=== PATIENT | male | born 1940 | race Caucasian/White ===

== ENCOUNTER → 2018-01-25 10:24 | Outpatient (CLI) | payer OTHER, SELFPAY ==
[2018-01-25 12:25] LABS: Absolute Lymphocyte Count 1.65 X10^3/ul (0.83-4.51); Absolute Neutrophil Count 3.6 X10^3/uL (2.0-7.7); Basophil# 0.03 X10^3/uL; Basophil% 0.5 % (0-1); Eosinophil# 0.16 X10^3/uL; Eosinophils% 2.5 % (0-5); Hematocrit 36.8 % (40-54); Hemoglobin 11.9 g/dl (13.0-16.5); Lymphocyte # 1.65 X10^3/ul (4.0); Lymphocyte % 25.3 % (19-41); Mean Corp Hgb Conc 32.3 g/gl (32-36); Mean Corpuscular Hgb 30.5 pg (27.0-32.0); Mean Corpuscular Volume 94.4 fL (80-94); Mean Platelet Vol. 10.7 fl (6.2-12.0); Monocyte% 15.3 % (0-10); Neutrophil # 3.62 X10^3/uL (2.7-7.7); Neutrophil % 55.3 % (47-70); Platelet Count 221 K/mm3 (150-450); RBC Distribution Width CV 13.7 % (11.6-14.6); RBC Distribution Width SD 45.1 fl (35.1-43.9); White Blood Count 6.5 K/mm3 (4.4-11.0)
[2018-01-25 12:46] LABS: POSITIVE COUNT NO; POSITIVE DIFFERENTIAL NO; POSITIVE MORPHOLOGY NO
[2018-01-25 12:47] LABS: Anion Gap 9 (5-15); BUN 35 mg/dL (7-18); BUN/Creat Ratio 19.8 RATIO (10-20); Calcium,Total 8.3 mg/dL (8.5-10.1); Chloride 111 mmol/L (98-107); Creatinine, Serum 1.77 mg/dL (0.70-1.30); EST Glomerular Filtration Rate 40 mL/min (>60); Est Glom Filt Rate - Afr Amer 48 mL/min (>60); Glucose 91 mg/dL (74-106); Potassium 5.5 mmol/L (3.5-5.1); Sodium Level 140 mmol/L (136-145); T4 Free Direct 1.06 ng/dL (0.76-1.46)
== END ==
PROVIDERS: Family Provider Family Medicine; PCP Family Medicine; Visit Provider Family Medicine
DX: I12.9 Hypertensive chronic kidney disease with stage 1 through stage 4 chronic kidney disease, or unspecified chronic kidney disease (principal); N18.9 Chronic kidney disease, unspecified; E03.9 Hypothyroidism, unspecified
CPT/HCPCS: 36415; 80048; 84439; 84443; 85025

== ENCOUNTER → 2018-02-01 11:36 | Outpatient (CLI) | payer OTHER, SELFPAY ==
[2018-02-01 15:26] LABS: Anion Gap 12 (5-15); BUN 28 mg/dL (7-18); BUN/Creat Ratio 19.6 RATIO (10-20); Calcium,Total 7.6 mg/dL (8.5-10.1); Chloride 112 mmol/L (98-107); Creatinine, Serum 1.43 mg/dL (0.70-1.30); EST Glomerular Filtration Rate 51 mL/min (>60); Est Glom Filt Rate - Afr Amer 62 mL/min (>60); Glucose 142 mg/dL (74-106); Potassium 4.4 mmol/L (3.5-5.1); Sodium Level 142 mmol/L (136-145)
== END ==
PROVIDERS: Family Provider Family Medicine; PCP Family Medicine; Visit Provider Family Medicine
DX: I12.9 Hypertensive chronic kidney disease with stage 1 through stage 4 chronic kidney disease, or unspecified chronic kidney disease (principal); N18.9 Chronic kidney disease, unspecified
CPT/HCPCS: 36415; 80048

== ENCOUNTER → 2018-03-08 09:00 | Outpatient (CLI) | payer OTHER, SELFPAY ==
--- NOTE | 2018-03-08 09:03 | RAD_ITS ---
STUDY: X-RAY CHEST REASON FOR EXAM: Male, 77 years old. Shortness of breath TECHNIQUE: Frontal and lateral views of the chest were obtained. COMPARISON: Prior comparison studies are not available for review at this time. FINDINGS: The lungs are hyperinflated. There are no focal airspace opacities. There is no demonstrated pleural abnormality. The cardiac silhouette is normal in size. The mediastinum and hilar regions are unremarkable. Normal visualized pulmonary arteries. There is atherosclerotic calcification of the thoracic aorta. There are diffuse degenerative changes of the visualized spine. The visualized ribs, clavicles, and shoulders are unremarkable. There is no demonstrated abnormality of the visualized upper abdomen. RAD/Chest PA and Lateral IMPRESSION: No acute cardiopulmonary abnormalities. Hyperinflation suggests COPD. Electronically Signed: Jayda Peace MD at 21:36 EDT Tel Direct: [phone], Service support ,
== END ==
PROVIDERS: Family Provider Family Medicine; PCP Family Medicine; Visit Provider Family Medicine
DX: R06.02 Shortness of breath (principal); I10 Essential (primary) hypertension
CPT/HCPCS: 71046

== ENCOUNTER → 2018-03-15 09:13 | Outpatient (CLI) | payer OTHER, SELFPAY ==
[2018-03-15 12:45] LABS: Anion Gap 13 (5-15); BUN 20 mg/dL (7-18); BUN/Creat Ratio 14.4 RATIO (10-20); Calcium,Total 7.4 mg/dL (8.5-10.1); Chloride 106 mmol/L (98-107); Creatinine, Serum 1.39 mg/dL (0.70-1.30); EST Glomerular Filtration Rate 53 mL/min (>60); Est Glom Filt Rate - Afr Amer 64 mL/min (>60); Glucose 149 mg/dL (74-106); Potassium 3.8 mmol/L (3.5-5.1); Sodium Level 144 mmol/L (136-145)
== END ==
PROVIDERS: Family Provider Family Medicine; PCP Family Medicine; Visit Provider Family Medicine
DX: I10 Essential (primary) hypertension (principal)
CPT/HCPCS: 36415; 80048

== ENCOUNTER 2018-04-11 09:06 | Emergency (ER) | payer MEDICARE, SELFPAY ==
[2018-04-11 09:06] VITALS: BP 147/77; PULSE 71; RESP 18; TEMP 36.6; O2SAT 97; BMI 30.8
--- NOTE | 2018-04-11 09:27 | RAD_ITS ---
STUDY: X-RAY - PELVIS AND RIGHT HIP REASON FOR EXAM: Male, 77 years old. Low back pain and right hip pain. TECHNIQUE: Radiological exam, hip, unilateral, with pelvis when performed; 2 or 3 views. COMPARISON: None. FINDINGS: There is a non-specific bowel gas pattern. There are atherosclerotic vascular calcifications of the pelvic arteries. A 1.6 cm calcification is seen overlying the right lower quadrant. This may represent an appendicolith. Normal bilateral iliac wings, sacroiliac joints and visualized sacrum. Normal bilateral superior and inferior pubic rami. Normal pubic symphysis. Normal bilateral ischial tuberosities. There is widening of the femoral neck suggestive of a femoral acetabular impingement. There is osteoarthritic spur formation of the acetabular rim. There is moderate articular joint space narrowing of the hip. RAD/Hip 2-3 Views with Pelvis IMPRESSION: Degenerative changes of the right hip joint. 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 Electronically Signed: Yann Hi MD at 10:15 EDT Tel [phone], Service support ,
--- NOTE | 2018-04-11 09:33 | ED.DCSUM_ITS ---
- ER Visit Summary Date of Service: 04/11/18 Chief Complaint: Back pain History of Present Illness: The patient is a 77 M presenting with back pain which has been worsening over the past 2 days. Patient states that he was advised by his primary care physician to discontinue ibuprofen which previously helped his back pain. He recently switched to Tylenol. He has pain in his low back which radiates to his right hip. He states last night he had pain when he tried to lay in bed. He did take an ibuprofen with improvement. He has improvement when he lays in his recliner but when he goes back in bed he has more pain. Denies injury. He denies bowel or bladder incontinence. Denies numbness or weakness. Denies fever chills. Physical Examination: Vitals are stable. Patient is afebrile. Alert no acute distress. HEENT exam is unremarkable. Neck is supple. Lungs are clear and equal bilaterally. Heart is regular rate and rhythm. Abdomen is soft nontender nondistended. Back: Right paraspinal lumbar muscle tenderness with no midline tenderness. Straight leg raise negative Extremities are unremarkable. Skin is warm and dry. No rash No focal neurologic deficit. Normal strength and sensation Remainder of exam is unremarkable. Emergency Department Course and Treatment: X-ray of the lumbar spine shows degenerative changes, osteopenia, no fracture. X-ray of the right hip shows Degenerative changes of the right hip joint. 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 Patient is resting comfortably on reevaluation. He declines pain medication. He will follow-up with his primary care physician. He is advised return to ED if worsening complaints. Disposition: Discharged home Impression: Acute on chronic back pain This note was generated with [employer] dictation software. It may contain incorrect words, spelling, and punctuation that were not noted in review of the chart prior to signing ED Disposition - Plan for ED Patient: Chief Complaint: Back Referrals: Hardik Finney MD [Primary Care Provider] -
--- NOTE | 2018-04-11 09:43 | RAD_ITS ---
STUDY: X-RAY - LUMBAR SPINE REASON FOR EXAM: Male, 77 years old. Low back and right hip pain TECHNIQUE: 3 view(s) of the lumbar spine were obtained. COMPARISON: None FINDINGS: Normal lumbar lordosis. There is no substantial scoliosis. There is a normal alignment of the vertebrae. There is diffuse demineralization with multi-level endplate spondylosis. There is multi-level degenerative disc disease with multi-level disc space narrowing. There is no demonstrated fracture. There is atherosclerotic calcification of the abdominal aorta without a demonstrated aneurysm. RAD/Lumbar Spine 2 or 3 Views IMPRESSION: Degenerative changes of the spine, as detailed above. Osteopenia, without acute fracture. Electronically Signed: Bertin Tomlin DO at 11:46 EDT Tel , Service support ,
--- NOTE | 2018-04-11 11:59 | ED.DEP ---
ED Disposition - Plan for ED Patient: Chief Complaint: Back Instructions: ED Neck Back Pain General Referrals: Hardik Finney MD [Primary Care Provider] -
[2018-04-11 12:01] VITALS: BP 142/74; PULSE 57; RESP 18; O2SAT 100
== END 2018-04-11 12:07 | disposition home or self-care (01) ==
PROVIDERS: Emergency Provider Emergency Medicine; Family Provider Family Medicine; PCP Family Medicine
DX: M54.9 Dorsalgia, unspecified (principal); G89.29 Other chronic pain; I10 Essential (primary) hypertension; M85.88 Other specified disorders of bone density and structure, other site; Z79.82 Long term (current) use of aspirin; Z79.899 Other long term (current) drug therapy
CPT/HCPCS: 72100; 73502; 99282

== ENCOUNTER 2018-04-26 09:05 | Day surgery (SDC) | payer MEDICARE, SELFPAY ==
[2018-04-26 09:31] VITALS: BP 159/80; PULSE 65; RESP 16; TEMP 36.2; O2SAT 98; BMI 30.5
[2018-04-26 11:05] VITALS: BP 138/69; BP 159/80; PULSE 59; RESP 14; TEMP 36.2; O2SAT 96
--- NOTE | 2018-04-26 11:09 | OP.PCM_ITS ---
Problem List (1) Dysphagia Status: Acute Qualifiers: Dysphagia type: esophageal phase Qualified Code(s): R13.10 - Dysphagia, unspecified (2) History of colon polyps Status: Acute Report of Operation Date of Procedure: 04/26/18 Pre-Operative Diagnosis: 1. Dysphasia. 2. History of colon polyps Post-Operative Diagnosis: 1. Normal EGD. 2. Sigmoid colon polyp. 3. Diverticulosis Surgery/Procedure Performed:: 1. EGD. 2. Colonoscopy Description of Procedure: The major risks and benefits associated with the procedure were explained to the patient in detail. The patient verbalized understanding and agreement with the same. The patient was then placed in the left lateral decubitus position. IV sedation was started by anesthesia. The endoscope was then advanced under direct visualization over the tongue, into the esophagus , stomach and duodenum. The esophagus appeared normal upon entry. There were no strictures. It was slowly withdrawn and the mucosa was carefully evaluated. Duodenal mucosal abnormalities were not visualized. Antegrade and retrograde views of the stomach were normal and did not reveal a hiatal hernia or ulceration. Gastric folds were normal. The scope was then withdrawn through the GE junction and careful examination did not demonstrate any mucosal abnormalities. No evidence of Cha's esophagus was apparent. Careful examination of the remainder of the esophagus was normal. There did appear to be non-contiguous contractions of the esophagus. The scope was then withdrawn from the patient. The patient was then turned for the colonoscopy portion of the procedure. A digital rectal exam was performed. This examination was within normal limits. A well-lubricated colonoscope was then inserted into the rectum and advanced under direct visualization to the level of the cecum. The bowel prep was good. The cecum was identified by both visual and anatomic landmarks. A photograph was taken of the end of the cecum. The scope was then fully withdrawn while examining the color, texture, anatomy and integrity of the mucosa from the cecum to the anal canal. The findings were consistent with normal colonic mucosa. The patient did have diverticulosis of the sigmoid colon. The patient did have a small polyp in the sigmoid colon which was identified while the scope was being withdrawn. While trying to orient the scope to biopsy this I was unable to locate the polyp I spent over 15 minutes advancing and withdrawing the colonoscope in the sigmoid colon and I was unable to find this polyp once more. Upon reaching the rectum the scope was retroflexed to examine the distal rectal vault. The scope was then straightened and was completely retrieved upon exiting the anal canal and the procedure was terminated. The patient was then transferred to the recovery room in stable condition. Recommendations for follow up: Recommend repeat colonoscopy in 6-12 months for removal of sigmoid colon polyp that was unable to be located for biopsy.
[2018-04-26 11:10] VITALS: BP 131/64; BP 159/80; PULSE 53; RESP 16; O2SAT 96
[2018-04-26 11:15] VITALS: BP 139/71; BP 159/80; PULSE 51; RESP 16; O2SAT 99
[2018-04-26 11:20] VITALS: BP 159/80; BP 167/72; PULSE 47; RESP 16; TEMP 36.5; O2SAT 100
[2018-04-26 11:40] VITALS: BP 159/80
== END 2018-04-26 11:56 | disposition home or self-care (01) ==
LOC: EN 09:05 → AC 09:06
PROVIDERS: Family Provider Family Medicine; PCP Family Medicine; Visit Provider Surgery
PROC: 0DJD8ZZ Inspection of Lower Intestinal Tract, Via Natural or Artificial Opening Endoscopic (ICD-10-PCS; CPT 45378; principal; 2018-04-26 10:10)
DX: R13.14 Dysphagia, pharyngoesophageal phase (principal); K63.5 Polyp of colon; K57.30 Diverticulosis of large intestine without perforation or abscess without bleeding; J43.9 Emphysema, unspecified; I10 Essential (primary) hypertension; E78.00 Pure hypercholesterolemia, unspecified; E07.9 Disorder of thyroid, unspecified; M19.90 Unspecified osteoarthritis, unspecified site; Z79.82 Long term (current) use of aspirin; Z79.899 Other long term (current) drug therapy; Z86.010 Personal history of colon polyps; Z87.891 Personal history of nicotine dependence; Z90.49 Acquired absence of other specified parts of digestive tract
CPT/HCPCS: 43235; G0105; J7120

== ENCOUNTER → 2018-08-11 08:22 | Outpatient (CLI) | payer MEDICARE, SELFPAY ==
[2018-08-11 11:54] LABS: Absolute Lymphocyte Count 1.49 X10^3/ul (0.83-4.51); Absolute Neutrophil Count 3.7 X10^3/uL (2.0-7.7); Basophil# 0.04 X10^3/uL; Basophil% 0.6 % (0-1); Eosinophil# 0.18 X10^3/uL; Eosinophils% 2.9 % (0-5); Hematocrit 36.9 % (40-54); Hemoglobin 11.8 g/dl (13.0-16.5); Lymphocyte # 1.49 X10^3/ul (4.0); Lymphocyte % 23.7 % (19-41); Mean Corpuscular Hgb 30.4 pg (27.0-32.0); Mean Corpuscular Volume 95.1 fL (80-94); Mean Platelet Vol. 10.7 fl (6.2-12.0); Monocyte# 0.82 X10^3/uL; Monocyte% 13.1 % (0-10); Neutrophil # 3.73 X10^3/uL (2.7-7.7); Neutrophil % 59.4 % (47-70); Platelet Count 189 K/mm3 (150-450); RBC Distribution Width CV 13.7 % (11.6-14.6); RBC Distribution Width SD 47.1 fl (35.1-43.9); Red Blood Count 3.88 M/mm3 (4.6-6.2); White Blood Count 6.3 K/mm3 (4.4-11.0)
[2018-08-11 11:56] LABS: POSITIVE COUNT NO; POSITIVE DIFFERENTIAL NO; POSITIVE MORPHOLOGY NO
[2018-08-11 12:16] LABS: AST(SGOT) 20 U/L (15-37); Alanine Aminotransfer ALT/SGPT 23 U/L (16-61); Albumin, Serum 3.3 g/dL (3.2-5.0); Alkaline Phosphatase 72 U/L (45-117); Anion Gap 8 (5-15); BUN 20 mg/dL (7-18); Calcium,Total 7.9 mg/dL (8.5-10.1); Chloride 110 mmol/L (98-107); Cholesterol 131 mg/dL (200); Creatinine, Serum 1.25 mg/dL (0.70-1.30); EST Glomerular Filtration Rate 60 mL/min (>60); Est Glom Filt Rate - Afr Amer 72 mL/min (>60); Globulin 3.4 g/dL (2.2-4.2); Glucose 121 mg/dL (74-106); High Density Lipoprotein 26 mg/dL; Potassium 4.2 mmol/L (3.5-5.1); Protein, Total 6.7 g/dL (6.4-8.2); Sodium Level 144 mmol/L (136-145); Thyroid Stim Hormone (TSH) 9.95 uIU/mL (0.358-3.74); Triglycerides 438 mg/dL
== END ==
PROVIDERS: Family Provider Family Medicine; PCP Family Medicine; Visit Provider Family Medicine
DX: N18.9 Chronic kidney disease, unspecified (principal); E03.9 Hypothyroidism, unspecified; E88.81 Metabolic syndrome and other insulin resistance
CPT/HCPCS: 36415; 80053; 80061; 84443; 85025

== ENCOUNTER → 2018-09-20 09:16 | Outpatient (CLI) | payer MEDICARE, SELFPAY ==
[2018-09-20 13:02] LABS: T4 Free Direct 1.01 ng/dL (0.76-1.46); Thyroid Stim Hormone (TSH) 5.81 uIU/mL (0.358-3.74)
== END ==
PROVIDERS: Family Provider Family Medicine; PCP Family Medicine; Visit Provider Family Medicine
DX: E03.9 Hypothyroidism, unspecified (principal)
CPT/HCPCS: 36415; 84439; 84443

== ENCOUNTER → 2019-01-25 09:12 | Outpatient (CLI) | payer MEDICARE, SELFPAY ==
[2019-01-25 12:54] LABS: Absolute Lymphocyte Count 1.67 X10^3/ul (0.83-4.51); Absolute Neutrophil Count 5.9 X10^3/uL (2.0-7.7); Basophil# 0.05 X10^3/uL; Basophil% 0.6 % (0-1); Eosinophil# 0.16 X10^3/uL; Eosinophils% 1.8 % (0-5); Hematocrit 35.6 % (40-54); Hemoglobin 11.5 g/dl (13.0-16.5); Lymphocyte # 1.67 X10^3/ul (4.0); Lymphocyte % 19.1 % (19-41); Mean Corp Hgb Conc 32.3 g/gl (32-36); Mean Corpuscular Hgb 30.3 pg (27.0-32.0); Mean Corpuscular Volume 93.9 fL (80-94); Mean Platelet Vol. 11.1 fl (6.2-12.0); Monocyte# 0.95 X10^3/uL; Monocyte% 10.8 % (0-10); Neutrophil # 5.87 X10^3/uL (2.7-7.7); Platelet Count 218 K/mm3 (150-450); RBC Distribution Width CV 13.9 % (11.6-14.6); RBC Distribution Width SD 45.9 fl (35.1-43.9); Red Blood Count 3.79 M/mm3 (4.6-6.2); White Blood Count 8.8 K/mm3 (4.4-11.0)
[2019-01-25 12:58] LABS: POSITIVE COUNT NO; POSITIVE DIFFERENTIAL NO; POSITIVE MORPHOLOGY NO
[2019-01-25 13:09] LABS: Anion Gap 10 (5-15); BUN 25 mg/dL (7-18); BUN/Creat Ratio 15.6 RATIO (10-20); Calcium,Total 7.6 mg/dL (8.5-10.1); Chloride 109 mmol/L (98-107); EST Glomerular Filtration Rate 45 mL/min (>60); Est Glom Filt Rate - Afr Amer 54 mL/min (>60); Glucose 157 mg/dL (74-106); Potassium 4.3 mmol/L (3.5-5.1); Sodium Level 140 mmol/L (136-145); Thyroid Stim Hormone (TSH) 4.86 uIU/mL (0.358-3.74)
== END ==
PROVIDERS: Family Provider Family Medicine; PCP Family Medicine; Visit Provider Family Medicine
DX: I12.9 Hypertensive chronic kidney disease with stage 1 through stage 4 chronic kidney disease, or unspecified chronic kidney disease (principal); N18.9 Chronic kidney disease, unspecified; E03.9 Hypothyroidism, unspecified
CPT/HCPCS: 36415; 80048; 84443; 85025

== ENCOUNTER → 2019-08-28 08:27 | Outpatient (CLI) | payer MEDICARE, SELFPAY ==
[2019-08-28 12:17] LABS: Absolute Neutrophil Count 4.4 X10^3/uL (2.0-7.7); Basophil# 0.06 X10^3/uL; Basophil% 0.8 % (0-1); Eosinophil# 0.12 X10^3/uL; Eosinophils% 1.7 % (0-5); Hematocrit 36.5 % (40-54); Hemoglobin 11.8 g/dL (13.0-16.5); Lymphocyte % 23.8 % (19-41); Mean Corp Hgb Conc 32.3 g/dL (32-36); Mean Corpuscular Hgb 31.4 pg (27.0-32.0); Mean Corpuscular Volume 97.1 fL (80-94); Mean Platelet Vol. 11.1 fl (6.2-12.0); Monocyte# 0.82 X10^3/uL; Monocyte% 11.5 % (0-10); NRBC Flagged by Analyzer 0 % (0-5); Neutrophil # 4.38 X10^3/uL (2.7-7.7); Neutrophil % 61.5 % (47-70); Platelet Count 161 K/mm3 (150-450); RBC Distribution Width CV 13.8 % (11.6-14.6); RBC Distribution Width SD 49.3 fl (35.1-43.9); Red Blood Count 3.76 M/mm3 (4.6-6.2); White Blood Count 7.1 K/mm3 (4.4-11.0)
[2019-08-28 12:39] LABS: AST(SGOT) 23 U/L (15-37); Alanine Aminotransfer ALT/SGPT 26 U/L (16-61); Albumin, Serum 3.3 g/dL (3.2-5.0); Alkaline Phosphatase 65 U/L (45-117); Anion Gap 9 (5-15); BUN 28 mg/dL (7-18); BUN/Creat Ratio 17.3 RATIO (10-20); Calcium,Total 8.1 mg/dL (8.5-10.1); Chloride 111 mmol/L (98-107); Creatinine, Serum 1.62 mg/dL (0.70-1.30); EST Glomerular Filtration Rate 44 mL/min (>60); Est Glom Filt Rate - Afr Amer 53 mL/min (>60); Ferritin 183 ng/mL (26-388); Globulin 3.4 g/dL (2.2-4.2); Glucose 120 mg/dL (74-106); Iron 94 ug/dL (65-175); Potassium 4.3 mmol/L (3.5-5.1); Protein, Total 6.7 g/dL (6.4-8.2); Sodium Level 143 mmol/L (136-145); Thyroid Stim Hormone (TSH) 2.54 uIU/mL (0.358-3.74)
[2019-08-28 12:45] LABS: Vitamin B12 174 pg/mL (211-911)
== END ==
PROVIDERS: Family Provider Family Medicine; PCP Family Medicine; Visit Provider Family Medicine
DX: I12.9 Hypertensive chronic kidney disease with stage 1 through stage 4 chronic kidney disease, or unspecified chronic kidney disease (principal); N18.9 Chronic kidney disease, unspecified; E03.9 Hypothyroidism, unspecified; E78.00 Pure hypercholesterolemia, unspecified; D64.9 Anemia, unspecified; G62.9 Polyneuropathy, unspecified
CPT/HCPCS: 36415; 80053; 82607; 82728; 83540; 84443; 85025

== ENCOUNTER → 2019-09-26 10:45 | Outpatient (CLI) | payer MEDICARE, SELFPAY ==
[2019-09-26 12:39] LABS: Absolute Lymphocyte Count 1.59 X10^3/uL (0.83-4.51); Absolute Neutrophil Count 4.6 X10^3/uL (2.0-7.7); Basophil# 0.05 X10^3/uL; Basophil% 0.7 % (0-1); Eosinophil# 0.11 X10^3/uL; Eosinophils% 1.5 % (0-5); Hematocrit 36.7 % (40-54); Hemoglobin 11.9 g/dL (13.0-16.5); Lymphocyte # 1.59 X10^3/ul (4.0); Mean Corp Hgb Conc 32.4 g/dL (32-36); Mean Corpuscular Hgb 30.8 pg (27.0-32.0); Mean Corpuscular Volume 95.1 fL (80-94); Mean Platelet Vol. 11.2 fl (6.2-12.0); Monocyte# 0.85 X10^3/uL; Monocyte% 11.8 % (0-10); NRBC Flagged by Analyzer 0 % (0-5); Neutrophil # 4.58 X10^3/uL (2.7-7.7); Neutrophil % 63.4 % (47-70); Platelet Count 175 K/mm3 (150-450); RBC Distribution Width CV 13.7 % (11.6-14.6); RBC Distribution Width SD 47.7 fl (35.1-43.9); Red Blood Count 3.86 M/mm3 (4.6-6.2); White Blood Count 7.2 K/mm3 (4.4-11.0)
[2019-09-26 12:46] LABS: AST(SGOT) 21 U/L (15-37); Alanine Aminotransfer ALT/SGPT 23 U/L (16-61); Albumin, Serum 3.3 g/dL (3.2-5.0); Alkaline Phosphatase 72 U/L (45-117); Anion Gap 5 (5-15); BUN 24 mg/dL (7-18); BUN/Creat Ratio 16.1 RATIO (10-20); Calcium,Total 8.1 mg/dL (8.5-10.1); Chloride 113 mmol/L (98-107); Creatinine, Serum 1.49 mg/dL (0.70-1.30); EST Glomerular Filtration Rate 49 mL/min (>60); Est Glom Filt Rate - Afr Amer 59 mL/min (>60); Ferritin 198 ng/mL (26-388); Globulin 3.3 g/dL (2.2-4.2); Glucose 114 mg/dL (74-106); Iron 93 ug/dL (65-175); Potassium 4.2 mmol/L (3.5-5.1); Protein, Total 6.6 g/dL (6.4-8.2); Sodium Level 142 mmol/L (136-145); Thyroid Stim Hormone (TSH) 3.05 uIU/mL (0.358-3.74)
[2019-09-26 13:38] LABS: Vitamin B12 476 pg/mL (211-911)
== END ==
PROVIDERS: Family Provider Family Medicine; PCP Family Medicine; Visit Provider Family Medicine
DX: I12.9 Hypertensive chronic kidney disease with stage 1 through stage 4 chronic kidney disease, or unspecified chronic kidney disease (principal); N18.9 Chronic kidney disease, unspecified; D63.1 Anemia in chronic kidney disease; E03.9 Hypothyroidism, unspecified; E78.00 Pure hypercholesterolemia, unspecified; G62.9 Polyneuropathy, unspecified
CPT/HCPCS: 36415; 80053; 82607; 82728; 83540; 84443; 85025

== ENCOUNTER → 2019-10-25 11:07 | Outpatient (CLI) | payer MEDICARE, SELFPAY ==
[2019-10-25 12:18] LABS: Absolute Neutrophil Count 5.3 X10^3/uL (2.0-7.7); Basophil# 0.06 X10^3/uL; Basophil% 0.7 % (0-1); Eosinophil# 0.14 X10^3/uL; Eosinophils% 1.7 % (0-5); Hematocrit 35.2 % (40-54); Hemoglobin 11.5 g/dL (13.0-16.5); Mean Corp Hgb Conc 32.7 g/dL (32-36); Mean Corpuscular Hgb 30.6 pg (27.0-32.0); Mean Corpuscular Volume 93.6 fL (80-94); Mean Platelet Vol. 11.2 fl (6.2-12.0); Monocyte# 0.82 X10^3/uL; Monocyte% 9.9 % (0-10); NRBC Flagged by Analyzer 0 % (0-5); Neutrophil # 5.26 X10^3/uL (2.7-7.7); Neutrophil % 63.2 % (47-70); Platelet Count 184 K/mm3 (150-450); RBC Distribution Width CV 13.5 % (11.6-14.6); RBC Distribution Width SD 46.2 fl (35.1-43.9); Red Blood Count 3.76 M/mm3 (4.6-6.2); White Blood Count 8.3 K/mm3 (4.4-11.0)
[2019-10-25 12:40] LABS: Vitamin B12 621 pg/mL (211-911)
[2019-10-25 12:47] LABS: Anion Gap 10 (5-15); BUN 23 mg/dL (7-18); BUN/Creat Ratio 15.3 RATIO (10-20); Chloride 108 mmol/L (98-107); EST Glomerular Filtration Rate 48 mL/min (>60); Est Glom Filt Rate - Afr Amer 58 mL/min (>60); Glucose 130 mg/dL (74-106); Potassium 4.4 mmol/L (3.5-5.1); Sodium Level 139 mmol/L (136-145)
== END ==
PROVIDERS: Family Provider Family Medicine; PCP Family Medicine; Visit Provider Family Medicine
DX: N18.9 Chronic kidney disease, unspecified (principal); E53.8 Deficiency of other specified B group vitamins
CPT/HCPCS: 36415; 80048; 82607; 85025

== ENCOUNTER → 2020-02-22 09:22 | Outpatient (CLI) | payer MEDICARE, SELFPAY ==
--- NOTE | 2020-02-22 09:40 | RAD_ITS ---
STUDY: X-RAY CHEST REASON FOR EXAM: Male, 79 years old. DYSPNEA PATIENT STATES HE HAD A SPOT ON HIS LUNG ABOUT [address] WANTED HIM TO HAVE A REPEAT CXR TO CHECK THIS OUT. HE IS UNSURE WHAT SIDE OR WHERE THE SPOT IS. TECHNIQUE: PA and lateral views of the chest. COMPARISON: Comparison is made with prior examination March 08, 2018. FINDINGS: Hyperinflation. Scattered calcified granulomas. There is no demonstrated pleural abnormality. Normal size heart. Normal mediastinum and yolanda. There is prominence of the pulmonary hilar arteries without peripheral pulmonary vascular congestion, suggesting pulmonary hypertension. There is atherosclerotic calcification of the aortic arch with tortuosity. There are diffuse degenerative changes of the visualized thoracic spine. Normal visualized ribs, clavicles, and shoulders. There is no demonstrated abnormality of the visualized soft tissue structures of the upper abdomen. RAD/Chest PA and Lateral IMPRESSION: Hyperinflation. Scattered calcified granulomas. Electronically Signed: Yann Hi, at 11:32 EDT , Service support ,
== END ==
PROVIDERS: PCP Family Medicine; Referring Provider Family Medicine; Visit Provider Family Medicine
DX: R06.00 Dyspnea, unspecified (principal)
CPT/HCPCS: 71046

== ENCOUNTER 2020-03-05 08:17 | Day surgery (SDC) | payer MEDICARE, SELFPAY ==
--- NOTE | 2020-02-27 01:51 | HP_ITS ---
Intake Vital Signs 02/27/20 BMI 30.5 02/27/20 Height 5 ft 10.5 in 02/27/20 Weight: 225 lb 02/27/20 BMI 31.8 02/27/20 BP 136/77 H 02/27/20 Blood Pressure Location Rt brachial 02/27/20 Position Sitting 02/27/20 Respiration 16 02/27/20 Pulse 66 02/27/20 Pulse Source Monitor 02/27/20 Temp 97.6 F L 02/27/20 Temp Source Temporal 02/27/20 Pulse Oximetry (%) 94 02/27/20 Oxygen Delivery Method room air Intake Visit Reasons: Colonoscopy Chief Complaint: cough/ congestion Support Team Member Required: No Is patient in pain?: No Allergies No Known Allergies Allergy (Verified 02/27/20 13:42) Medications Aspirin E.C. [Ecotrin] 81 mg PO DAILY@0800 09/11/13 [History Confirmed 02/27/20] Enalapril Maleate [Vasotec] 20 mg PO DAILY 09/11/13 [History Confirmed 02/27/20] Lovastatin [Mevacor] 40 mg PO DAILY 09/11/13 [History Confirmed 02/27/20] Metoprolol Tartrate [Lopressor] 50 mg PO DAILY 09/11/13 [History Confirmed 02/27/20] Amlodipine [Norvasc] 5 mg PO DAILY 04/11/18 [History Confirmed 02/27/20] celecoxib 100 mg capsule 100 mg PO DAILY 02/27/20 [History Confirmed 02/27/20] levothyroxine 150 mcg capsule 150 mcg PO DAILY 02/27/20 [History] [facility] Medical History Hx of pancreatitis (Acute) SOB (shortness of breath) (Acute) Emphysema, unspecified (Acute) Back problem (Acute) Arthritis (Acute) Hypertension (Chronic) Fatigue (Acute) Thyroid disease (Acute) Dysphagia (Acute) History of colon polyps (Acute) Acute bronchitis (Acute) Surgical History History of esophagogastroduodenoscopy (EGD) (Acute) Hx of colonoscopy (Acute) Hx of right cataract extraction (Acute) History of tonsillectomy and adenoidectomy (Acute) History of back surgery (Acute) History of cholecystectomy (Acute) Family History Brother Cancer Brother Cancer Sister Heart disease Hypertension Myocardial infarction Father Heart disease Myocardial infarction Social History (Updated 02/27/20 @ 13:[address] Hemanth Phipps MD) Smoking Status: Former smoker alcohol intake: never substance use type: does not use caffeine: Yes what type of physical activity do you participate in: none frequency: does not exercise HPI HPI HPI: NITHIN GALVAN, is a 79 M who presents to the office today for HPI HPI Surgical H&P: Yes HPI: NITHIN GALVAN, is a 79 M who presents to the office today for history of polyp. The patient had a colonoscopy in 2018 and during that colonoscopy there was a small polyp noted in the sigmoid colon but during manipulation of the scope this polyp was lost and was unable to be re-found. The patient was recommended to have a repeat colonoscopy in 1 year for surveillance. The patient never had this done and reports now to have this scheduled. He denies any blood in his stool or abdominal pain. ROS General General: No weight change, appetite, fatigue, colon cancer, breast cancer or weakness HEENT HEENT: Yes eye surgery; no difficulty swallowing, eye injury, swollen glands or hoarseness Endo Endocrine: Yes thyroid disease; no diabetes mellitus, thyroid cancer, Hair loss, heat intolerance or cold intolerance Skin Skin: No rash or changing moles Musc Musculoskeletal: Yes back problems and arthritis; no rheumatoid arthritis, gout or joint pain Cardio Cardiovascular: Yes high blood pressure; no murmur, pacemaker, heart disease, atrial fibrillation, heart attack, heart stent, palpitations, shortness of breat with exertion or chest pain Psych Psychiatric: No depression, anxiety or hearing voices Resp Respiratory: Yes shortness of breath, No sleep apnea, No cough, No COPD, No asthma, Yes emphysema, No wheezing Gastro Gastrointestinal: No abdominal pain, No nausea or vomiting, No diarrhea, No constipation, No blood in stool, No acid reflux, No hemorrhoids, No ulcers, No gallbladder problem, No black,tarry stools Socrates Hematologic: No blood thinners, No blood disorders, No bleeding, No anemia, No blood clots Neuro Neurologic: No weakness Exam Const General: cooperative Orientation: alert, oriented x3 Resp Effort & Inspection: normal respiratory effort Auscultation: clear to auscultation bilaterally Cardio Rate: regular rate Rhythm: regular rhythm Heart Sounds: no murmurs GI Inspection: non-distended Palpation: soft, nontender Assessment & Plan Problems 1. History of colonic polyps Z86.010 Plan The patient had a sigmoid colon polyp during colonoscopy 2 years ago. At that time it was lost and only intermittently seen. I was unable to re-find the polyp despite several minutes of trying. I recommended that the patient repeat colonoscopy in 1 year to ensure that this had not grown or turned into a cancer. The patient is now here and never had his colonoscopy last year. I recommend repeating colonoscopy to perform surveillance of the sigmoid colon. I explained endoscopy in detail to the patient. I explained the risks including but not limited to stroke or heart attack with anesthesia, perforation of the GI tract, bleeding, infection. I explained that any of these could necessitate further emergency surgery. The patient understands and all questions were answered sufficiently. The patient wishes to proceed with procedure. I discussed COVID situation with the patient in detail. I discussed the risks of acquiring COVID during hospitalization and during outpatient procedure. The patient understands and is willing to proceed. Hemanth Phipps MD Pager: [facility] [address] [place] [address], [address] [place] [address] Office: Orders Orders: Colonoscopy Today Z86.010 Coding Level of Care Code Off vis,est,level 3 Diagnoses History of colonic polyps Z86.010 02/27/20 1351 <Electronically signed by Hemanth hansen MD> Date _ Hemanth Phipps MD I have re-examined the patient. There are no clinical changes since date of exam.
[2020-02-27 13:46] VITALS: BMI 30.5
[2020-03-05] VITALS (7 sets, daily range): BP systolic 117–152; BP diastolic 62–74; PULSE 57–66; RESP 16; TEMP 36; O2SAT 97–100; BMI 30.3
[2020-03-05] MEDS: Lactated Ringers 1,000 ML 100 ML IV (08:52)
--- NOTE | 2020-03-05 09:30 | COLBX_PTH ---
PATIENT: NITHIN GALVAN LOC: EN U#:[id number] AGE/SX: 79/M ROOM: RE03/05/[address]: Dr. Hemanth Phipps MD : 1940 BED: DIS: 03/05/2020 SPEC #: [id number] RECD: 03/05/20 12:40 STATUS: INES EDMAR #: [id number] SERGIO: 03/05/20 09:[address]: Hemanth Phipps DEPT: SURGICAL PATHOLOGY RECD BY: Delfino Morris ENTERED: 03/06/20 09:15 SP TYPE: COLON BX OTHR DR: Dr. Hardik Finney MD Tissues: A - Sigmoid colon biopsy B - Descending colon Procedures: Surgery Specimen Level IV HEADER OPERATION: Colonoscopy (MAC) PRE-OP DIAGNOSIS: History polyps TISSUE SUBMITTED: A - Sigmoid colon polyp, B - Descending colon polyp MICROSCOPIC DIAGNOSIS A. Sigmoid colon polyp, biopsy: Hyperplastic polyp. B. Descending colon polyp, biopsy: Tubular adenoma. AM:kan 03/07/20 MICROSCOPIC DESCRIPTION Slides are reviewed. GROSS DESCRIPTION A - Received in fixative is one container labeled with the patient's name and designated sigmoid colon polyp. The specimen consists of multiple irregular fragments of light coello soft tissue that in aggregate measure 1 x 0.3 x 0.1 cm. The specimen is totally submitted in one cassette. B - Received in fixative is one container labeled with the patient's name and designated descending colon polyp. The specimen consists of one irregular fragment of light coello soft tissue that measures 0.8 x 0.6 x 0.2 cm. The specimen is totally submitted in one cassette. / AM:kan 03/06/20 TC:5 CPT: 44496 x2
--- NOTE | 2020-03-05 10:32 | OP.COLON_ITS ---
Patient Name: Titus Saba Procedure Date: 03/05/2020 9:45 AM Date of : 1940 Age: 79 Procedure: Colonoscopy Indications: High risk colon cancer surveillance: Personal history of colonic polyps Providers: Hemanth Phipps MD Referring MD: Hardik Finney Medicines: Monitored Anesthesia Care Patient Profile: This is a 79 year old male. Refer to note in patient chart for documentation of history and physical. Last Colonoscopy: 3 years ago. Complications: No immediate complications. Estimated blood loss: Minimal. Procedure: Pre-Anesthesia Assessment: - Prior to the procedure, a History and Physical was performed, and patient medications and allergies were reviewed. The patient's tolerance of previous anesthesia was also reviewed. The risks and benefits of the procedure and the sedation options and risks were discussed with the patient. All questions were answered, and informed consent was obtained. Prior Anticoagulants: The patient has taken no previous anticoagulant or antiplatelet agents. After reviewing the risks and benefits, the patient was deemed in satisfactory condition to undergo the procedure. After I obtained informed consent, the scope was passed under direct vision. Throughout the procedure, the patient's blood pressure, pulse, and oxygen saturations were monitored continuously. The colonoscope was introduced through the anus and advanced to the cecum, identified by appendiceal orifice and ileocecal valve. The colonoscopy was performed without difficulty. The patient tolerated the procedure well. The quality of the bowel preparation was good. Scope In: 10:01:01 AM Scope Withdrawal Time 0 hours 6 minutes 3 seconds Scope Out: 10:17:46 AM Total Procedure Duration Time 0 hours 16 minutes 45 seconds Findings: Two sessile polyps were found in the sigmoid colon and proximal descending colon. The polyps were large in size. These polyps were removed with a hot snare. Resection and retrieval were complete. The exam was otherwise without abnormality on direct and retroflexion views. Multiple small-mouthed diverticula were found in the sigmoid colon. Impression: - Two large polyps in the sigmoid colon and in the proximal descending colon, removed with a hot snare. Resected and retrieved. - The examination was otherwise normal on direct and retroflexion views. - Diverticulosis in the sigmoid colon. Recommendation: - Discharge patient to home. - Resume previous diet. - Continue present medications. - Await pathology results. - Repeat colonoscopy for surveillance based on pathology results. Procedure Code(s): --- Professional --- 00320, Colonoscopy, flexible; with removal of tumor(s), polyp(s), or other lesion(s) by snare technique Diagnosis Code(s): --- Professional --- Z86.010, Personal history of colonic polyps D12.5, Benign neoplasm of sigmoid colon D12.4, Benign neoplasm of descending colon K57.30, Diverticulosis of large intestine without perforation or abscess without bleeding CPT copyright 2017 [employer]. All rights reserved. The codes documented in this report are preliminary and upon manager field sales review may be revised to meet current compliance requirements. Hemanth Phipps MD 03/05/2020 10:32:28 AM This report has been signed electronically. Number of Addenda: 0 Note Initiated On: 03/05/2020 9:45 AM
--- NOTE | 2020-03-05 10:33 | OP.CCLET_ITS ---
03/05/2020 Hardik Finney Re : Colonoscopy procedure for Titus Saba Dear Sharmin This procedure was performed on Thursday, March 05, 2020. My impressions and recommendations are as follows: Impressions : - Two large polyps in the sigmoid colon and in the proximal descending colon, removed with a hot snare. Resected and retrieved. - The examination was otherwise normal on direct and retroflexion views. - Diverticulosis in the sigmoid colon. Recommendations : - Discharge patient to home. - Resume previous diet. - Continue present medications. - Await pathology results. - Repeat colonoscopy for surveillance based on pathology results. My findings are described in the full procedure note, which is enclosed. If I can be of further assistance, please feel free to contact me at Doctor phone number(s): , Work: . Sincerely, Hemanth Phipps MD 03/05/2020 10:32:28 AM This report has been signed electronically.
== END 2020-03-05 11:01 | disposition home or self-care (01) ==
LOC: EN 08:19 → AC 08:19
PROVIDERS: PCP Family Medicine; Referring Provider Family Medicine; Visit Provider Surgery
PROC: 0DJD8ZZ Inspection of Lower Intestinal Tract, Via Natural or Artificial Opening Endoscopic (ICD-10-PCS; CPT 45378; principal; 2020-03-05 09:25)
DX: Z12.11 Encounter for screening for malignant neoplasm of colon (principal); D12.4 Benign neoplasm of descending colon; D12.5 Benign neoplasm of sigmoid colon; K57.30 Diverticulosis of large intestine without perforation or abscess without bleeding; I10 Essential (primary) hypertension; E78.00 Pure hypercholesterolemia, unspecified; E06.9 Thyroiditis, unspecified; Z86.010 Personal history of colon polyps; Z79.82 Long term (current) use of aspirin; Z87.891 Personal history of nicotine dependence; Z79.899 Other long term (current) drug therapy; Z11.59 Encounter for screening for other viral diseases
CPT/HCPCS: 45385; 87635; 88305; G2023; J7120; U0002

== ENCOUNTER → 2020-04-17 09:01 | Outpatient (CLI) | payer OTHER, SELFPAY ==
[2020-03-05 08:37] VITALS: BMI 30.3
[2020-04-17 12:37] LABS: Absolute Neutrophil Count 4.6 X10^3/uL (2.0-7.7); Basophil# 0.05 X10^3/uL; Basophil% 0.7 % (0-1); Eosinophil# 0.13 X10^3/uL; Eosinophils% 1.8 % (0-5); Hematocrit 33.8 % (40-54); Hemoglobin 10.7 g/dL (13.0-16.5); Lymphocyte % 19.7 % (19-41); Mean Corp Hgb Conc 31.7 g/dL (32-36); Mean Corpuscular Hgb 31.1 pg (27.0-32.0); Mean Corpuscular Volume 98.3 fL (80-94); Mean Platelet Vol. 11.2 fl (6.2-12.0); Monocyte# 0.93 X10^3/uL; Monocyte% 13.1 % (0-10); NRBC Flagged by Analyzer 0 % (0-5); Neutrophil # 4.58 X10^3/uL (2.7-7.7); Neutrophil % 64.3 % (47-70); Platelet Count 179 K/mm3 (150-450); RBC Distribution Width CV 13.7 % (11.6-14.6); RBC Distribution Width SD 48.4 fl (35.1-43.9); Red Blood Count 3.44 M/mm3 (4.6-6.2); White Blood Count 7.1 K/mm3 (4.4-11.0)
[2020-04-17 12:59] LABS: Hemoglobin A1c 5.6 % (3.8-5.6)
[2020-04-17 13:05] LABS: Vitamin B12 > 2000 pg/mL (211-911)
[2020-04-17 13:11] LABS: ALB/GLOB Ratio 0.9 RATIO (0.9-2.4); AST(SGOT) 18 U/L (15-37); Alanine Aminotransfer ALT/SGPT 19 U/L (16-61); Albumin, Serum 3.2 g/dL (3.2-5.0); Alkaline Phosphatase 69 U/L (45-117); Anion Gap 8 (5-15); BUN 34 mg/dL (7-18); BUN/Creat Ratio 21.4 RATIO (10-20); Calcium,Total 7.8 mg/dL (8.5-10.1); Chloride 114 mmol/L (98-107); Creatinine, Serum 1.59 mg/dL (0.70-1.30); EST Glomerular Filtration Rate 45 mL/min (>60); Est Glom Filt Rate - Afr Amer 54 mL/min (>60); Globulin 3.5 g/dL (2.2-4.2); Glucose 126 mg/dL (74-106); Potassium 4.3 mmol/L (3.5-5.1); Protein, Total 6.7 g/dL (6.4-8.2); Sodium Level 143 mmol/L (136-145); Thyroid Stim Hormone (TSH) 1.46 uIU/mL (0.358-3.74)
== END ==
PROVIDERS: PCP Family Medicine; Visit Provider Family Medicine
DX: N18.9 Chronic kidney disease, unspecified (principal); E03.9 Hypothyroidism, unspecified; D63.8 Anemia in other chronic diseases classified elsewhere; E53.8 Deficiency of other specified B group vitamins; E78.00 Pure hypercholesterolemia, unspecified
CPT/HCPCS: 36415; 80053; 82607; 83036; 84443; 85025

== ENCOUNTER → 2020-08-30 09:08 | Outpatient (CLI) | payer OTHER, SELFPAY ==
[2020-03-05 08:37] VITALS: BMI 30.3
[2020-08-30 12:53] LABS: Absolute Lymphocyte Count 1.37 X10^3/uL (0.83-4.51); Absolute Neutrophil Count 5.5 X10^3/uL (2.0-7.7); Basophil# 0.06 X10^3/uL; Basophil% 0.8 % (0-1); Eosinophil# 0.12 X10^3/uL; Eosinophils% 1.5 % (0-5); Hemoglobin 11.4 g/dL (13.0-16.5); Lymphocyte # 1.37 X10^3/ul (4.0); Lymphocyte % 17.4 % (19-41); Mean Corp Hgb Conc 31.7 g/dL (32-36); Mean Corpuscular Hgb 30.5 pg (27.0-32.0); Mean Corpuscular Volume 96.3 fL (80-94); Mean Platelet Vol. 11.1 fl (6.2-12.0); Monocyte# 0.85 X10^3/uL; Monocyte% 10.8 % (0-10); NRBC Flagged by Analyzer 0 % (0-5); Neutrophil # 5.45 X10^3/uL (2.7-7.7); Neutrophil % 69.1 % (47-70); Platelet Count 205 K/mm3 (150-450); RBC Distribution Width CV 13.5 % (11.6-14.6); Red Blood Count 3.74 M/mm3 (4.6-6.2); White Blood Count 7.9 K/mm3 (4.4-11.0)
[2020-08-30 13:21] LABS: ALB/GLOB Ratio 0.9 RATIO (0.9-2.4); AST(SGOT) 21 U/L (15-37); Alanine Aminotransfer ALT/SGPT 30 U/L (16-61); Albumin, Serum 3.3 g/dL (3.2-5.0); Alkaline Phosphatase 76 U/L (45-117); Anion Gap 8 (5-15); BUN 30 mg/dL (7-18); BUN/Creat Ratio 16.5 RATIO (10-20); Calcium,Total 8.1 mg/dL (8.5-10.1); Chloride 112 mmol/L (98-107); Creatinine, Serum 1.82 mg/dL (0.70-1.30); EST Glomerular Filtration Rate 38 mL/min (>60); Est Glom Filt Rate - Afr Amer 46 mL/min (>60); Globulin 3.5 g/dL (2.2-4.2); Glucose 154 mg/dL (74-106); Potassium 4.4 mmol/L (3.5-5.1); Protein, Total 6.8 g/dL (6.4-8.2); Sodium Level 140 mmol/L (136-145); T4 Free Direct 1.13 ng/dL (0.76-1.46); Thyroid Stim Hormone (TSH) 1.01 uIU/mL (0.358-3.74)
[2020-09-02 14:25] LABS: Vitamin B12 > 2000 pg/mL (211-911)
== END ==
PROVIDERS: PCP Family Medicine; Referring Provider Family Medicine; Visit Provider Family Medicine
DX: E03.9 Hypothyroidism, unspecified (principal); D63.8 Anemia in other chronic diseases classified elsewhere; G57.93 Unspecified mononeuropathy of bilateral lower limbs; E53.8 Deficiency of other specified B group vitamins
CPT/HCPCS: 36415; 80053; 82607; 84439; 84443; 85025

== ENCOUNTER → 2020-09-16 08:51 | Outpatient (CLI) | payer OTHER, SELFPAY ==
[2020-03-05 08:37] VITALS: BMI 30.3
[2020-09-16 13:00] LABS: Anion Gap 7 (5-15); BUN 25 mg/dL (7-18); BUN/Creat Ratio 15.5 RATIO (10-20); Calcium,Total 8.1 mg/dL (8.5-10.1); Chloride 112 mmol/L (98-107); Creatinine, Serum 1.61 mg/dL (0.70-1.30); EST Glomerular Filtration Rate 44 mL/min (>60); Est Glom Filt Rate - Afr Amer 54 mL/min (>60); Glucose 149 mg/dL (74-106); Potassium 4.3 mmol/L (3.5-5.1); Sodium Level 141 mmol/L (136-145)
== END ==
LOC: POLAB3 08:54 → BFHLAB 09:06
PROVIDERS: PCP Family Medicine; Visit Provider Family Medicine
DX: N18.9 Chronic kidney disease, unspecified (principal)
CPT/HCPCS: 36415; 80048

== ENCOUNTER → 2021-03-04 08:58 | Outpatient (CLI) | payer MEDICARE, SELFPAY ==
[2020-03-05 08:37] VITALS: BMI 30.3
--- NOTE | 2021-03-04 09:03 | RAD_ITS ---
STUDY: X-RAY CHEST REASON FOR EXAM: Male, 80 years old. DYSPNEA, ABNORMAL LUNG SOUNDS TECHNIQUE: PA and lateral views of the chest. COMPARISON: 02/22/2020. FINDINGS: The lungs are clear and expanded. There is no demonstrated pleural abnormality. Normal size heart. Normal mediastinum and yolanda. Normal visualized pulmonary arteries. There is atherosclerotic calcification of the aortic arch with tortuosity. There are diffuse degenerative changes of the visualized thoracic spine. There is degenerative osteoarthritis of the bilateral shoulders. There is no demonstrated abnormality of the visualized soft tissue structures of the upper abdomen. RAD/Chest PA and Lateral IMPRESSION: No acute cardiopulmonary disease. Electronically Signed: Leslie Thompson MD at 2:25 EDT , Service support ,
[2021-03-04 10:25] LABS: Absolute Lymphocyte Count 1.73 X10^3/uL (0.83-4.51); Absolute Neutrophil Count 7.8 X10^3/uL (2.0-7.7); Basophil# 0.07 X10^3/uL; Basophil% 0.7 % (0-1); Eosinophils% 0.9 % (0-5); Hematocrit 35.9 % (40-54); Hemoglobin 11.3 g/dL (13.0-16.5); Lymphocyte # 1.73 X10^3/ul (0.83-4.51); Lymphocyte % 16.1 % (19-41); Mean Corp Hgb Conc 31.5 g/dL (32-36); Mean Corpuscular Volume 95.2 fL (80-94); Mean Platelet Vol. 10.5 fl (6.2-12.0); Monocyte# 0.99 X10^3/uL; Monocyte% 9.2 % (0-10); NRBC Flagged by Analyzer 0 % (0-5); Neutrophil # 7.77 X10^3/uL (2.7-7.7); Neutrophil % 72.5 % (47-70); Platelet Count 275 K/mm3 (150-450); RBC Distribution Width CV 14.4 % (11.6-14.6); RBC Distribution Width SD 50.2 fl (35.1-43.9); Red Blood Count 3.77 M/mm3 (4.6-6.2); White Blood Count 10.7 K/mm3 (4.4-11.0)
[2021-03-04 10:55] LABS: Vitamin B12 488 pg/mL (211-911)
[2021-03-04 11:12] LABS: ALB/GLOB Ratio 0.9 RATIO (0.9-2.4); AST(SGOT) 11 U/L (15-37); Alanine Aminotransfer ALT/SGPT 13 U/L (16-61); Albumin, Serum 3.2 g/dL (3.2-5.0); Alkaline Phosphatase 68 U/L (45-117); Anion Gap 8 (5-15); BUN 22 mg/dL (7-18); Calcium,Total 8.6 mg/dL (8.5-10.1); Chloride 110 mmol/L (98-107); Creatinine, Serum 1.47 mg/dL (0.70-1.30); EST Glomerular Filtration Rate 49 mL/min (>60); Est Glom Filt Rate - Afr Amer 59 mL/min (>60); Ferritin 323 ng/mL (26-388); Globulin 3.6 g/dL (2.2-4.2); Glucose 99 mg/dL (74-106); Iron 76 ug/dL (65-175); Lipase 123 U/L (73-393); PSA,Total - Annual Screen 2.99 ng/mL (0.00-4.00); Potassium 3.8 mmol/L (3.5-5.1); Protein, Total 6.8 g/dL (6.4-8.2); Sodium Level 140 mmol/L (136-145); T4 Free Direct 1.44 ng/dL (0.76-1.46); Thyroid Stim Hormone (TSH) 0.07 uIU/mL (0.358-3.74)
== END ==
PROVIDERS: PCP Family Medicine; Referring Provider Family Medicine; Visit Provider Family Medicine
DX: E78.00 Pure hypercholesterolemia, unspecified (principal); I10 Essential (primary) hypertension; E03.9 Hypothyroidism, unspecified; E53.8 Deficiency of other specified B group vitamins; D63.8 Anemia in other chronic diseases classified elsewhere; R63.4 Abnormal weight loss; R06.00 Dyspnea, unspecified; R06.89 Other abnormalities of breathing; R17 Unspecified jaundice; Z12.5 Encounter for screening for malignant neoplasm of prostate
CPT/HCPCS: 36415; 71046; 80053; 82607; 82728; 83540; 83690; 84153; 84439; 84443; 85025; G0103

== ENCOUNTER 2021-06-14 07:22 | Emergency (ER) | payer MEDICARE, SELFPAY ==
[2021-06-14 07:23] VITALS: BP 118/72; PULSE 85; RESP 16; TEMP 36.1; BMI 25.1
--- NOTE | 2021-06-14 07:45 | RAD_ITS ---
STUDY: X-RAY CHEST REASON FOR EXAM: Male, 80 years old. chest pain TECHNIQUE: PA and lateral views of the chest. COMPARISON: 03/04/2021 FINDINGS: The lungs are clear and expanded. There is no demonstrated pleural abnormality. Normal size heart. Normal mediastinum and yolanda. Normal visualized pulmonary arteries. Normal visualized aortic arch and descending thoracic aorta. Normal visualized thoracic spine. Normal visualized ribs, clavicles, and shoulders. There is no demonstrated abnormality of the visualized soft tissue structures of the upper abdomen. RAD/Chest PA and Lateral IMPRESSION: Normal x-ray examination of the chest. Electronically Signed: Fitz Lassiter MD at 8:59 EDT Tel , Service support ,
--- NOTE | 2021-06-14 07:45 | EKG12_ITS ---
Test Reason : OTHER/PAIN Blood Pressure : / mmHG Vent. Rate : 064 BPM Atrial Rate : 064 BPM P-R Int : 200 ms QRS Dur : 098 ms QT Int : 390 ms P-R-T Axes : 059 -30 018 degrees QTc Int : 402 ms Sinus rhythm with frequent Premature ventricular complexes Left axis deviation Abnormal ECG Confirmed by ANA DAIVLA, OLIVIA ([id number]), editor department MELINDA TUCKER ([id number]) on 06/16/2021 12:26:53 PM Referred By: DAVID Confirmed By:OLIVIA PEREZ MD
--- NOTE | 2021-06-14 07:46 | ED.VIS.CHEST ---
HPI History of Present Illness Chief Complaint: Other, Pain/Inj Narrative Narrative: Patient presents with chest pain that he has had since 8 PM last evening, almost 12 hours ago. He states that he has left-sided pain that is worse with movement and sometimes breathing. He denies any fevers or chills. No cough. No nausea or vomiting. He denies any dysuria or hematuria. Took Tylenol last evening which perhaps helped him to a slight degree, but he awoke at 4 AM this morning with left-sided pain again. He took Tylenol this morning prior to arrival, and states that he is having continued pain in his left side. More towards the side and back. He denies any leg swelling. Past medical history includes hypertension, and emphysema. [facility] Medical History Acute bronchitis Arthritis Back problem Dysphagia Emphysema, unspecified Fatigue History of colon polyps Hx of pancreatitis Hypertension SOB (shortness of breath) Thyroid disease Home Medications aspirin 81 mg PO DAILY@0800 09/11/13 [History Last Taken Unknown] enalapril maleate 20 mg PO DAILY 09/11/13 [History Last Taken Unknown] lovastatin 40 mg PO DAILY 09/11/13 [History Last Taken Unknown] metoprolol tartrate 50 mg PO DAILY 09/11/13 [History Last Taken Unknown] amlodipine 5 mg PO DAILY 04/11/18 [History Last Taken Unknown] celecoxib 100 mg capsule 100 mg PO DAILY 02/27/20 [History Last Taken Unknown] levothyroxine 150 mcg capsule 150 mcg PO DAILY 02/27/20 [History Last Taken 03/05/20 05:00 150 MCG] Allergy/AdvReac Type Severity Reaction Status Date / Time No Known Allergies Allergy Verified 06/14/21 07:26 Family History Brother Cancer Brother Cancer Sister Heart disease Hypertension Myocardial infarction Father Heart disease Myocardial infarction Surgical History History of back surgery History of cholecystectomy History of esophagogastroduodenoscopy (EGD) History of tonsillectomy and adenoidectomy Hx of colonoscopy Hx of right cataract extraction Social History (Updated 02/27/20 @ 13:[address] Hemanth Phipps MD) Smoking Status: Former smoker alcohol intake: never substance use type: does not use caffeine: Yes what type of physical activity do you participate in: none frequency: does not exercise ROS ROS ED ROS Narrative Constitutional: No fever, no chills. HEENT: No sore throat. No neck pain. No loss of vision. No rhinorrhea. Cardiovascular: Positive left-sided chest pain. No palpitations. No pedal edema. Respiratory: No cough, no shortness of breath. Abdominal: No abdominal pain. No nausea. No vomiting. Genitourinary: No dysuria. No hematuria. Musculoskeletal: No myalgias. No arthralgias. Neurologic: No headaches. No dizziness. No lightheadedness. Skin: No rash. No change in color. Psychiatric: No depression. No anxiety. EXAM Physical Exam Narrative Exam Narrative: Afebrile. Vital signs noted. HEENT: Normocephalic. Atraumatic. PERRL, EOMI. Neck soft and supple. No point tenderness or step off. Cardiovascular: Regular rate and rhythm. No murmurs, rubs, or gallops appreciated. Positive tenderness to palpation on lower portion of the left ribs. No crepitance. Pain is reproducible. Worse with movement of torso. Respiratory: No tachypnea. Lungs clear to auscultation bilaterally. Gastrointestinal: Abdomen soft, nontender, with normoactive bowel sounds. No rebound or guarding. Neurological: Awake. Alert. Nonfocal, nonlateralizing. Skin: No rash. Normal color. No pallor. Musculoskeletal: No pedal edema. Full range of motion extremities. Const Vital Signs: 06/14/21 07:23 06/14/21 08:24 06/14/21 09:20 Temperature 96.9 F L Temperature Source Temporal Pulse Rate 85 66 Respiratory Rate 16 14 Blood Pressure 118/72 162/72 H Blood Pressure Mean 87 102 Pulse Ox 95 Oxygen Delivery Method Room Air Room Air MDM MDM MDM Narrative Medical decision making narrative: I do feel that the patient has more chest wall pain as it is reproducible, however given his age, I do feel that he merits cardiac work-up. His EKG demonstrates normal sinus rhythm at 64 bpm with 2 PVCs. He has a slightly elevated white count of 11.6 with a stable hemoglobin of 11.4, hematocrit 35.4. His electrolyte panel shows chloride slightly elevated at 109, creatinine also slightly elevated at 1.45 which is his baseline. His initial high-sensitivity troponin is 18. His repeat is 19. Chest x-ray shows normal examination as read by radiology. At this point in time, I feel he be discharged safely home with a diagnosis of chest wall pain. His son is now at the bedside who agrees. He will follow up with his primary care physician. Return instructions to the emergency department were reviewed. Disposition is discharged home in stable condition. Lab Data Labs: Laboratory Results - last 24 hr 06/14/21 06/14/21 06/14/21 08:22 08:22 10:45 WBC 11.6 H RBC 3.56 L Hgb 11.4 L Hct 35.4 L MCV 99.4 H MCH 32.0 MCHC 32.2 RDW Std Deviation 52.0 H RDW Coeff of Dina 14.2 Plt Count 217 MPV 10.1 Immature Gran % (Auto) 0.500 Neut % (Auto) 74.1 H Lymph % (Auto) 12.1 L Curry % (Auto) 12.2 H Eos % (Auto) 0.7 Baso % (Auto) 0.4 Absolute Neuts (auto) 8.6 H Absolute Lymphs (auto) 1.41 Nucleated RBC % 0 Sodium 143 Potassium 3.7 Chloride 109 H Carbon Dioxide 23.0 Anion Gap 11 BUN 24 H Creatinine 1.45 H Estim Creat Clear Calc 44.00 Est GFR (MDRD) Af Amer 60 Est GFR (MDRD) Non-Af 50 L BUN/Creatinine Ratio 16.6 Glucose 114 H Calcium 8.2 L Troponin I High Sens 18 19 Radiography Diagnostic Testing: Radiology Impression Chest X-Ray 06/14/21 07:45 IMPRESSION: Normal x-ray examination of the chest. Electronically Signed: Fitz Lassiter MD at 8:59 EDT Tel , Service support , Discharge Plan Triage Chief Complaint: Other, Pain/Inj ED Provider: Nasir Ahumada Dx/Rx/DC Orders Prescriptions: No Action celecoxib [Celebrex] 100 mg capsule 100 mg PO DAILY RF: 0 levothyroxine 150 mcg capsule 150 mcg capsule 150 mcg PO DAILY RF: 0 enalapril maleate 20 MG tablet 20 mg PO DAILY RF: 0 lovastatin 40 MG tablet 40 mg PO DAILY RF: 0 aspirin 81 MG tablet 81 mg PO DAILY@0800 RF: 0 metoprolol tartrate 50 MG tablet 50 mg PO DAILY RF: 0 amlodipine 5 MG tablet 5 mg PO DAILY RF: 0 Primary Care Provider: Hardik Finney
[2021-06-14 08:30] LABS: Absolute Lymphocyte Count 1.41 X10^3/uL (0.83-4.51); Absolute Neutrophil Count 8.6 X10^3/uL (2.0-7.7); Basophil# 0.05 X10^3/uL; Basophil% 0.4 % (0-1); Eosinophil# 0.08 X10^3/uL; Eosinophils% 0.7 % (0-5); Hematocrit 35.4 % (40-54); Hemoglobin 11.4 g/dL (13.0-16.5); Lymphocyte # 1.41 X10^3/ul (0.83-4.51); Lymphocyte % 12.1 % (19-41); Mean Corp Hgb Conc 32.2 g/dL (32-36); Mean Corpuscular Volume 99.4 fL (80-94); Mean Platelet Vol. 10.1 fl (6.2-12.0); Monocyte# 1.42 X10^3/uL; Monocyte% 12.2 % (0-10); NRBC Flagged by Analyzer 0 % (0-5); Neutrophil # 8.62 X10^3/uL (2.7-7.7); Neutrophil % 74.1 % (47-70); Platelet Count 217 K/mm3 (150-450); RBC Distribution Width CV 14.2 % (11.6-14.6); Red Blood Count 3.56 M/mm3 (4.6-6.2); White Blood Count 11.6 K/mm3 (4.4-11.0)
[2021-06-14 08:46] LABS: Anion Gap 11 (5-15); BUN 24 mg/dL (7-18); BUN/Creat Ratio 16.6 RATIO (10-20); Calcium,Total 8.2 mg/dL (8.5-10.1); Chloride 109 mmol/L (98-107); Creatinine, Serum 1.45 mg/dL (0.70-1.30); EST Glomerular Filtration Rate 50 mL/min (>60); Est Glom Filt Rate - Afr Amer 60 mL/min (>60); Glucose 114 mg/dL (74-106); Potassium 3.7 mmol/L (3.5-5.1); Sodium Level 143 mmol/L (136-145); Troponin-I HS 18 pg/mL (3.0-78.0)
[2021-06-14 09:20] VITALS: BP 162/72; PULSE 66; RESP 14; O2SAT 95
[2021-06-14 11:06] LABS: Troponin-I HS 19 pg/mL (3.0-78.0)
[2021-06-14] MEDS: Aspirin 81 MG TAB.CHEW 324 MG PO (11:39)
[2021-06-14 11:43] VITALS: BP 129/79; PULSE 84; RESP 20; O2SAT 99
--- NOTE | 2021-06-14 11:44 | ED.RN ---
THIS NURSE REVIEWED D/C INSTRUCTIONS WITH PT AND SON. BOTH VERBALIZED UNDERSTANDING OF INSTRUCTIONS. IV D/C. IV CATHETER INTACT. PT TOLERATED WELL. PT DENIES FURTHER NEEDS OR QUESTIONS AT THIS TIME. PT AMBULATES FROM ROOM ON OWN WITHOUT ASSISTANCE FROM STAFF
== END 2021-06-14 11:45 | disposition home or self-care (01) ==
PROVIDERS: Emergency Provider Emergency Medicine; PCP Family Medicine
DX: R07.89 Other chest pain (principal); I10 Essential (primary) hypertension; E07.9 Disorder of thyroid, unspecified; J43.9 Emphysema, unspecified; M19.90 Unspecified osteoarthritis, unspecified site; Z79.82 Long term (current) use of aspirin; Z79.899 Other long term (current) drug therapy; Z87.891 Personal history of nicotine dependence
CPT/HCPCS: 71046; 80048; 84484; 85025; 93005; 99285; A4216

== ENCOUNTER → 2023-02-24 | Outpatient (CLI) | payer MEDICARE, SELFPAY ==
[2023-02-24 12:14] LABS: Absolute Lymphocyte Count 1.62 X10^3/uL (0.83-4.51); Absolute Neutrophil Count 5.8 X10^3/uL (2.0-7.7); Basophil# 0.07 X10^3/uL; Basophil% 0.8 % (0-1); Eosinophil# 0.12 X10^3/uL; Eosinophils% 1.4 % (0-5); Hematocrit 36.1 % (40-54); Hemoglobin 11.6 g/dL (13.0-16.5); Lymphocyte # 1.62 X10^3/ul (0.83-4.51); Lymphocyte % 18.9 % (19-41); Mean Corp Hgb Conc 32.1 g/dL (32-36); Mean Corpuscular Hgb 31.6 pg (27.0-32.0); Mean Corpuscular Volume 98.4 fL (80-94); Mean Platelet Vol. 11.5 fl (6.2-12.0); Monocyte# 0.88 X10^3/uL; Monocyte% 10.3 % (0-10); NRBC Flagged by Analyzer 0 % (0-5); Neutrophil # 5.83 X10^3/uL (2.7-7.7); Neutrophil % 68.2 % (47-70); Platelet Count 186 K/mm3 (150-450); RBC Distribution Width CV 13.7 % (11.6-14.6); RBC Distribution Width SD 50.1 fl (35.1-43.9); Red Blood Count 3.67 M/mm3 (4.6-6.2); White Blood Count 8.6 K/mm3 (4.4-11.0)
[2023-02-24 12:56] LABS: Vitamin B12 316 pg/mL (211-911)
[2023-02-24 13:27] LABS: AST(SGOT) 11 U/L (15-37); Alanine Aminotransfer ALT/SGPT 18 U/L (16-61); Albumin, Serum 3.3 g/dL (3.2-5.0); Alkaline Phosphatase 99 U/L (45-117); Anion Gap 5 (5-15); BUN 27 mg/dL (7-18); BUN/Creat Ratio 15.8 RATIO (10-20); Calcium,Total 8.1 mg/dL (8.5-10.1); Chloride 115 mmol/L (98-107); Cholesterol 115 mg/dL (200); Creatinine, Serum 1.71 mg/dL (0.70-1.30); EST Glomerular Filtration Rate 41 mL/min (>60); Est Glom Filt Rate - Afr Amer 50 mL/min (>60); Ferritin 183 ng/mL (26-388); Globulin 3.4 g/dL (2.2-4.2); Glucose 104 mg/dL (74-106); High Density Lipoprotein 30 mg/dL; Iron 67 ug/dL (65-175); PSA,Total - Annual Screen 1.19 ng/mL (0.00-4.00); Potassium 4.2 mmol/L (3.5-5.1); Protein, Total 6.7 g/dL (6.4-8.2); Sodium Level 141 mmol/L (136-145); Thyroid Stim Hormone (TSH) 3.83 uIU/mL (0.358-3.74); Triglycerides 369 mg/dL; Very Low Density Lipoprotein 74 mg/dL (5-40)
== END | disposition home or self-care (01) ==
LOC: BFHLAB 10:40
PROVIDERS: PCP Nurse Practitioner Family; Referring Provider Nurse Practitioner Family; Visit Provider Nurse Practitioner Family
DX: Z00.00 Encounter for general adult medical examination without abnormal findings (principal); Z12.5 Encounter for screening for malignant neoplasm of prostate; I10 Essential (primary) hypertension; E03.9 Hypothyroidism, unspecified; E53.8 Deficiency of other specified B group vitamins; E78.00 Pure hypercholesterolemia, unspecified; D63.8 Anemia in other chronic diseases classified elsewhere
CPT/HCPCS: 36415; 80053; 80061; 82607; 82728; 83540; 84153; 84439; 84443; 85025; G0103

== ENCOUNTER 2023-03-16 07:18 | Day surgery (SDC) | payer MEDICARE, SELFPAY ==
[2023-03-16] VITALS (7 sets, daily range): BP systolic 92–164; BP diastolic 46–76; PULSE 65–81; RESP 16–18; TEMP 36.1–36.9; O2SAT 95–96; BMI 26.2
[2023-03-16] MEDS: Lactated Ringers 1,000 ML 15 ML IV (07:56)
--- NOTE | 2023-03-16 08:03 | PCM.HP.BLA ---
History and Physical Date of Admission: 03/16/23 Intake Vital Signs ? 06/14/2107:23 03/02/2314:32 Height 5 ft 11 in 5 ft 11 in Weight: ? 196 lb 8 oz BMI ? 27.3 BP ? 138/76 H Blood Pressure Location ? Rt brachial Position ? Sitting Respiration ? 17 Pulse ? 64 Pulse Source ? Monitor Pulse Oximetry (%) ? 96 Oxygen Delivery Method ? room air Intake Visit Reasons:?COLONOSCOPY Chief Complaint: colonoscpy Allergies No Known Allergies Allergy (Verified 06/14/21 07:26) Medications aspirin 81 mg tablet,delayed release 81 mg PO DAILY@0800 09/11/13 [History Confirmed 03/02/23] enalapril maleate 20 mg tablet 20 mg PO DAILY 09/11/13 [History Confirmed 03/02/23] lovastatin 40 mg tablet 40 mg PO DAILY 09/11/13 [History Confirmed 03/02/23] metoprolol tartrate 50 mg tablet 50 mg PO DAILY 09/11/13 [History Confirmed 03/02/23] amlodipine 5 mg tablet 5 mg PO DAILY 04/11/18 [History Confirmed 03/02/23] celecoxib 100 mg capsule (Celebrex) 100 mg PO DAILY 02/27/20 [History Confirmed 03/01/20] levothyroxine 150 mcg capsule 150 mcg PO DAILY 02/27/20 [History Confirmed 03/02/23] PFSH Medical History?(Updated 03/02/23 @ 14:32 by Akua Barreto) Acute bronchitis Arthritis Back problem Dysphagia Emphysema, unspecified Fatigue History of colon polyps Hx of pancreatitis Hypertension SOB (shortness of breath) Thyroid disease Surgical History? History of back surgery History of cholecystectomy History of esophagogastroduodenoscopy (EGD) History of tonsillectomy and adenoidectomy Hx of colonoscopy Hx of right cataract extraction Family History? Brother CancerBrother CancerSister Heart disease Hypertension Myocardial infarctionFather Heart disease Myocardial infarction Social History? Smoking Status:? Former smoker alcohol intake:? never substance use type:? does not use caffeine:? Yes what type of physical activity do you participate in:? none frequency:? does not exercise HPI HPI HPI: Patient is an 82-year-old male here for colonoscopy.? He has been experiencing some bowel habit changes.? He thinks a longer time to have a bowel movement he feels like things are sticking.? Patient had a colonoscopy in 2018 and was recommended to have a repeat in 1 year due to missed polyp.? He never did have a repeat colonoscopy.? He denies blood in his stool but he is having lower abdominal pain. ROS General General: No weight change, appetite, fatigue, colon cancer, breast cancer or weakness HEENT HEENT: No difficulty swallowing, eye injury, eye surgery, swollen glands or hoarseness Endo Endocrine: Yes thyroid disease; No diabetes mellitus, thyroid cancer, Hair loss, heat intolerance or cold intolerance Skin Skin: No rash or changing moles Musc Musculoskeletal: Yes back problems and arthritis; No rheumatoid arthritis, gout or joint pain Cardio Cardiovascular: Yes high blood pressure; No murmur, pacemaker, heart disease, atrial fibrillation, heart attack, heart stent, palpitations, shortness of breat with exertion or chest pain Psych Psychiatric: No depression, anxiety or hearing voices Resp Respiratory: No shortness of breath, No sleep apnea, No cough, No COPD, No asthma, No emphysema and No wheezing Gastro Gastrointestinal: Yes abdominal pain, No nausea or vomiting, No diarrhea, No constipation, No blood in stool, No acid reflux, No hemorrhoids, No ulcers, No gallbladder problem and No black,tarry stools Socrates Hematologic: No blood thinners, No blood disorders, No bleeding, No anemia and No blood clots Neuro Neurologic: No system reviewed and no additional complaints, except as documented, No as per HPI, No abnormal gait, No abnormal hearing, No abnormal movements, No abnormal speech, No behavioral changes, No burning sensations, No confusion, No convulsions, No disequilibrium, No dizziness, No localized weakness, No frequent falls, No headache(s), No lack of coordination, No loss of vision, No memory loss, Yes numbness, No other visual disturbances, No radicular pain, No restless legs, No sensory deficit, No syncope, Yes tingling, No tremor(s), No weakness and No other Exam Const General: cooperative Orientation: alert and oriented x3 HENMT Head: normal to inspection Neck Neck: normal visual inspection and full ROM Chest Chest palpation & inspection: normal inspection of the chest Resp Effort & Inspection: normal respiratory effort Auscultation: clear to auscultation bilaterally Cardio Rate: regular rate Rhythm: regular rhythm GI Inspection: non-distended Palpation: soft and nontender Skin General: no rashes or lesions noted Neuro General: patient alert and patient oriented x3 Extrem General: full ROM Psych Appearance: grossly normal Mental Status: mental status grossly normal Assessment and Plan Assessment and Plan (1) History of colon polyps: ?Status:?Acute ?Plan: Patient has a history of colon polyps and requires surveillance colonoscopy.? He is also having bowel habit changes and he says he is having some lower abdominal discomfort and discomfort with passing bowel movements.? I will perform a colonoscopy for the patient I asked him to hold his aspirin for 5 days. I explained endoscopy in detail to the patient.? I explained the risks including but not limited to stroke or heart attack with anesthesia, perforation of the GI tract, bleeding, infection.? I explained that any of these could necessitate further emergency surgery.? The patient understands and all questions were answered sufficiently.? The patient wishes to proceed with procedure. Hemanth Phipps MD Pager: [facility] [address] [place] [address], [address] [place] [address] Office: I have examined the patient and the H&P has been reviewed. There are no clinical changes since date of exam.
--- NOTE | 2023-03-16 08:30 | COLBX_PTH ---
PATIENT: NITHIN GALVAN LOC: EN U#:[id number] AGE/SX: 82/M ROOM: RE03/16/[address]: Dr. Hemanth Phipps MD : 1940 BED: DIS: 03/16/2023 SPEC #: [id number] RECD: 03/16/23 10:22 STATUS: INES REMolly #: [id number] SERGIO: 03/16/23 08:[address]: Hemanth Phipps DEPT: SURGICAL PATHOLOGY RECD BY: Lien Manuel ENTERED: 03/16/23 11:12 SP TYPE: COLON BX OTHR DR: Deysi Elder, [employer] INSTALLER-C Tissues: Transverse colon Procedures: Surgery Specimen Level IV HEADER OPERATION: Colonoscopy (MAC) and polypectomy PRE-OP DIAGNOSIS: History of colon polyps TISSUE SUBMITTED: Transverse colon polyp MICROSCOPIC DIAGNOSIS Transverse colon polyp, polypectomy: Tubular adenoma. SJ:kan 03/17/2023 MICROSCOPIC DESCRIPTION Slides are reviewed. GROSS DESCRIPTION Received in fixative is one container labeled with the patient's name and designated transverse colon polyp. The specimen consists of a coello-pink polyp measuring 0.5 x 0.5 x 0.3 cm. Multiple fragments of fecal material are also noted. The specimen is totally submitted in one cassette. / SJ:rg 03/16/2023 TC:1 CPT: 34346
--- NOTE | 2023-03-16 08:37 | OP.CCLET_ITS ---
03/16/2023 Graham Faye Re : Colonoscopy procedure for Titus Saba Dear Jerrod This procedure was performed on Thursday, March 16, 2023. My impressions and recommendations are as follows: Impressions : - One small polyp in the transverse colon, removed with a hot snare. Resected and retrieved. Recommendations : - Discharge patient to home. - Resume previous diet. - Continue present medications. - Await pathology results. - Repeat colonoscopy after studies are complete for surveillance based on pathology results. My findings are described in the full procedure note, which is enclosed. If I can be of further assistance, please feel free to contact me at Doctor phone number(s): , Work: . Sincerely, Hemanth Phipps MD 03/16/2023 8:37:16 AM This report has been signed electronically.
--- NOTE | 2023-03-16 08:37 | OP.COLON_ITS ---
Patient Name: Titus Saba Procedure Date: 03/16/2023 8:12 AM Date of : 1940 Age: 82 Procedure: Colonoscopy Indications: Abdominal pain in the left lower quadrant, Constipation Providers: Hemanth Phipps MD Referring MD: Graham Faye Medicines: Monitored Anesthesia Care Patient Profile: This is an 82 year old male. Refer to note in patient chart for documentation of history and physical. Last Colonoscopy: several years ago. Complications: No immediate complications. Procedure: Pre-Anesthesia Assessment: - Prior to the procedure, a History and Physical was performed, and patient medications and allergies were reviewed. The patient's tolerance of previous anesthesia was also reviewed. The risks and benefits of the procedure and the sedation options and risks were discussed with the patient. All questions were answered, and informed consent was obtained. Prior Anticoagulants: The patient has taken no previous anticoagulant or antiplatelet agents. After reviewing the risks and benefits, the patient was deemed in satisfactory condition to undergo the procedure. After I obtained informed consent, the scope was passed under direct vision. Throughout the procedure, the patient's blood pressure, pulse, and oxygen saturations were monitored continuously. The pediatric colonoscope was introduced through the anus and advanced to the cecum, identified by appendiceal orifice and ileocecal valve. Scope In: 8:20:02 AM Scope Withdrawal Time 0 hours 6 minutes 30 seconds Scope Out: 8:32:33 AM Total Procedure Duration Time 0 hours 12 minutes 31 seconds Findings: A small polyp was found in the transverse colon. The polyp was removed with a hot snare. Resection and retrieval were complete. Impression: - One small polyp in the transverse colon, removed with a hot snare. Resected and retrieved. Recommendation: - Discharge patient to home. - Resume previous diet. - Continue present medications. - Await pathology results. - Repeat colonoscopy after studies are complete for surveillance based on pathology results. Procedure Code(s): --- Professional --- 39981, Colonoscopy, flexible; with removal of tumor(s), polyp(s), or other lesion(s) by snare technique Diagnosis Code(s): --- Professional --- D12.3, Benign neoplasm of transverse colon (hepatic flexure or splenic flexure) R10.32, Left lower quadrant pain K59.00, Constipation, unspecified CPT copyright 2017 [employer]. All rights reserved. The codes documented in this report are preliminary and upon beauty director review may be revised to meet current compliance requirements. Hemanth Phipps MD 03/16/2023 8:37:16 AM This report has been signed electronically. Number of Addenda: 0 Note Initiated On: 03/16/2023 8:12 AM
== END 2023-03-16 09:12 | disposition home or self-care (01) ==
LOC: EN 07:19 → AC 07:20
PROVIDERS: PCP Nurse Practitioner Family; Referring Provider Nurse Practitioner Family; Visit Provider Surgery
PROC: 0DJD8ZZ Inspection of Lower Intestinal Tract, Via Natural or Artificial Opening Endoscopic (ICD-10-PCS; CPT 45378; principal; 2023-03-16 08:25)
DX: Z12.11 Encounter for screening for malignant neoplasm of colon (principal); Z86.010 Personal history of colon polyps; Z87.891 Personal history of nicotine dependence; D12.3 Benign neoplasm of transverse colon; R10.32 Left lower quadrant pain; K59.00 Constipation, unspecified; Z79.82 Long term (current) use of aspirin; I10 Essential (primary) hypertension; Z90.49 Acquired absence of other specified parts of digestive tract
CPT/HCPCS: 45385; 88305; J7120; J2405

== ENCOUNTER → 2023-06-30 | Outpatient (CLI) | payer MEDICARE, SELFPAY ==
[2023-06-30 15:54] LABS: Absolute Lymphocyte Count 1.67 X10^3/uL (0.83-4.51); Absolute Neutrophil Count 6.5 X10^3/uL (2.0-7.7); Basophil# 0.06 X10^3/uL; Basophil% 0.6 % (0-1); Eosinophil# 0.09 X10^3/uL; Eosinophils% 0.9 % (0-5); Hematocrit 35.5 % (40-54); Hemoglobin 11.1 g/dL (13.0-16.5); Lymphocyte # 1.67 X10^3/ul (0.83-4.51); Lymphocyte % 17.4 % (19-41); Mean Corp Hgb Conc 31.3 g/dL (32-36); Mean Corpuscular Hgb 31.1 pg (27.0-32.0); Mean Corpuscular Volume 99.4 fL (80-94); Mean Platelet Vol. 11.2 fl (6.2-12.0); Monocyte# 1.21 X10^3/uL; Monocyte% 12.6 % (0-10); NRBC Flagged by Analyzer 0 % (0-5); Neutrophil # 6.54 X10^3/uL (2.7-7.7); Neutrophil % 68.1 % (47-70); Platelet Count 223 K/mm3 (150-450); RBC Distribution Width CV 13.8 % (11.6-14.6); RBC Distribution Width SD 50.4 fl (35.1-43.9); Red Blood Count 3.57 M/mm3 (4.6-6.2); White Blood Count 9.6 K/mm3 (4.4-11.0)
[2023-06-30 16:03] LABS: AST(SGOT) 12 U/L (15-37); Alanine Aminotransfer ALT/SGPT 15 U/L (16-61); Albumin, Serum 3.4 g/dL (3.2-5.0); Alkaline Phosphatase 105 U/L (45-117); Anion Gap 8 (5-15); BUN 30 mg/dL (7-18); BUN/Creat Ratio 14.6 RATIO (10-20); Calcium,Total 8.2 mg/dL (8.5-10.1); Chloride 112 mmol/L (98-107); Creatinine, Serum 2.06 mg/dL (0.70-1.30); EST Glomerular Filtration Rate 33 mL/min (>60); Est Glom Filt Rate - Afr Amer 40 mL/min (>60); Globulin 3.5 g/dL (2.2-4.2); Glucose 119 mg/dL (74-106); Potassium 4.7 mmol/L (3.5-5.1); Protein, Total 6.9 g/dL (6.4-8.2); Sodium Level 140 mmol/L (136-145); T4 Free Direct 0.95 ng/dL (0.76-1.46); Thyroid Stim Hormone (TSH) 2.02 uIU/mL (0.358-3.74)
[2023-06-30 16:09] LABS: Vitamin B12 436 pg/mL (211-911)
== END | disposition home or self-care (01) ==
LOC: BFHLAB 11:33
PROVIDERS: PCP Nurse Practitioner Family; Referring Provider Nurse Practitioner Family; Visit Provider Nurse Practitioner Family
DX: I10 Essential (primary) hypertension (principal); E03.9 Hypothyroidism, unspecified; D63.8 Anemia in other chronic diseases classified elsewhere; E53.8 Deficiency of other specified B group vitamins
CPT/HCPCS: 36415; 80053; 82607; 84439; 84443; 85025

== ENCOUNTER → 2023-07-08 | Outpatient (CLI) | payer MEDICARE, SELFPAY ==
[2023-07-08 15:40] LABS: Anion Gap 7 (5-15); BUN 31 mg/dL (7-18); BUN/Creat Ratio 16.8 RATIO (10-20); Calcium,Total 8.2 mg/dL (8.5-10.1); Chloride 116 mmol/L (98-107); Creatinine, Serum 1.85 mg/dL (0.70-1.30); EST Glomerular Filtration Rate 37 mL/min (>60); Est Glom Filt Rate - Afr Amer 45 mL/min (>60); Glucose 109 mg/dL (74-106); Potassium 4.6 mmol/L (3.5-5.1); Sodium Level 141 mmol/L (136-145)
== END | disposition home or self-care (01) ==
LOC: BFHLAB 11:23
PROVIDERS: PCP Nurse Practitioner Family; Referring Provider Nurse Practitioner Family; Visit Provider Nurse Practitioner Family
DX: N18.9 Chronic kidney disease, unspecified (principal)
CPT/HCPCS: 36415; 80048

== ENCOUNTER → 2023-07-26 | Outpatient (CLI) | payer MEDICARE, SELFPAY ==
--- NOTE | 2023-07-26 16:02 | US_ITS ---
INDICATION: ABN LABS EXAMINATION: Ultrasound US Kidney(s) complete (eg, kidneys and bladder) TECHNIQUE: Weber scale and color doppler images were obtained of the kidneys. COMPARISON: None. FINDINGS: RIGHT KIDNEY: 10.0 cm length. There is no hydronephrosis. Simple cyst interpolar 1.0 x 0.8 x 0.9 cm. LEFT KIDNEY: 10.0 cm length. There is no hydronephrosis. No shadowing calculus, focal lesion or perinephric collection is demonstrated. URINARY BLADDER: Moderately distended. Bladder volume 124 mL. Diverticulum posteriorly. Bilateral ureteral jets were visualized. US/Kidney and Bladder IMPRESSION: Negative renal ultrasound. Electronically Signed: Isi River MD at 5:42 EDT ,
== END | disposition home or self-care (01) ==
LOC: US 16:00
PROVIDERS: PCP Nurse Practitioner Family; Referring Provider Nurse Practitioner Family; Visit Provider Nurse Practitioner Family
DX: N28.9 Disorder of kidney and ureter, unspecified (principal)
CPT/HCPCS: 76770

== ENCOUNTER → 2023-08-25 | Outpatient (CLI) | payer MEDICARE, SELFPAY ==
[2023-08-25 12:16] LABS: Absolute Lymphocyte Count 1.45 X10^3/uL (0.83-4.51); Basophil# 0.05 X10^3/uL; Basophil% 0.7 % (0-1); Eosinophil# 0.13 X10^3/uL; Eosinophils% 1.7 % (0-5); Hematocrit 34.7 % (40-54); Hemoglobin 10.5 g/dL (13.0-16.5); Lymphocyte # 1.45 X10^3/ul (0.83-4.51); Lymphocyte % 18.9 % (19-41); Mean Corp Hgb Conc 30.3 g/dL (32-36); Mean Corpuscular Hgb 30.6 pg (27.0-32.0); Mean Corpuscular Volume 101.2 fL (80-94); Mean Platelet Vol. 11.6 fl (6.2-12.0); NRBC Flagged by Analyzer 0 % (0-5); Neutrophil # 5.01 X10^3/uL (2.7-7.7); Platelet Count 193 K/mm3 (150-450); RBC Distribution Width CV 13.5 % (11.6-14.6); RBC Distribution Width SD 50.7 fl (35.1-43.9); Red Blood Count 3.43 M/mm3 (4.6-6.2); White Blood Count 7.7 K/mm3 (4.4-11.0)
[2023-08-25 12:24] LABS: ALB/GLOB Ratio 0.9 RATIO (0.9-2.4); AST(SGOT) 10 U/L (15-37); Alanine Aminotransfer ALT/SGPT 13 U/L (16-61); Alkaline Phosphatase 96 U/L (45-117); Anion Gap 7 (5-15); BUN 29 mg/dL (7-18); BUN/Creat Ratio 16.2 RATIO (10-20); Calcium,Total 7.6 mg/dL (8.5-10.1); Chloride 115 mmol/L (98-107); Creatinine, Serum 1.79 mg/dL (0.70-1.30); EST Glomerular Filtration Rate 39 mL/min (>60); Est Glom Filt Rate - Afr Amer 47 mL/min (>60); Globulin 3.5 g/dL (2.2-4.2); Glucose 130 mg/dL (74-106); Potassium 4.6 mmol/L (3.5-5.1); Protein, Total 6.5 g/dL (6.4-8.2); Sodium Level 142 mmol/L (136-145)
== END | disposition home or self-care (01) ==
LOC: BFHLAB 10:25
PROVIDERS: PCP Nurse Practitioner Family; Visit Provider Nurse Practitioner Family
DX: I12.9 Hypertensive chronic kidney disease with stage 1 through stage 4 chronic kidney disease, or unspecified chronic kidney disease (principal); N18.9 Chronic kidney disease, unspecified; D63.1 Anemia in chronic kidney disease
CPT/HCPCS: 36415; 80053; 85025

== ENCOUNTER → 2023-10-06 | Outpatient (CLI) | payer MEDICARE, SELFPAY ==
--- NOTE | 2023-10-06 | LES_PTH ---
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 See comment. AM:kan 10/07/2023 COMMENT Dysplastic changes in epithelium are present and suspicious for squamous cell carcinoma. Clinical correlation is necessary. Case has been reviewed in consultation with Dr. Santiago who concurs with the above diagnosis. IDC:SJ MICROSCOPIC DESCRIPTION Slides are reviewed. GROSS DESCRIPTION Received is one container labeled with the patient's name and not further designated. The specimen consists of two pieces of coello-white cutaneous horn-like tissue measuring in aggregate 1.0 x 0.8 x 0.3 cm. The entire specimen is submitted in one cassette. / GISELA:kan 10/06/2023 TC:? CPT: 85933
== END | disposition home or self-care (01) ==
LOC: LABSPEC 10:55
PROVIDERS: PCP Nurse Practitioner Family; Visit Provider Nurse Practitioner Family
DX: L85.8 Other specified epidermal thickening (principal)
CPT/HCPCS: 88305

== ENCOUNTER 2023-10-19 09:14 | Emergency (ER) | payer MEDICARE, SELFPAY ==
[2023-10-19 09:15] VITALS: BP 148/74; PULSE 64; RESP 15; TEMP 36; O2SAT 98; BMI 27.2
--- NOTE | 2023-10-19 09:20 | RAD_ITS ---
STUDY: X-RAY - RIGHT KNEE REASON FOR EXAM: Male, 83 years old. Injury. Fell yesterday. Pain laterally and anteriorly. TECHNIQUE: 4 views of the right knee. COMPARISON: None. FINDINGS: Normal visualized distal femur. Normal visualized proximal tibia and fibula. Normal proximal tibiofibular articulation. There is no demonstrated fracture. Normal medial femorotibial compartment. Normal lateral femorotibial compartment. Normal patellofemoral articulation. There is no demonstrated joint effusion. There are atherosclerotic calcifications. RAD/Knee 4 or More Views IMPRESSION: No demonstrated fracture. Electronically Signed: Tuan Stevens MD at 9:38 EST ,
--- NOTE | 2023-10-19 09:55 | EDS_ITS ---
HPI History of Present Illness Chief Complaint: Lower Extremity Injury Informant: patient Narrative Narrative: Patient presents with right knee pain. Patient states he fell yesterday. He had brought his trash can over near a porch. He was lifting a box up high to set in the trash can and he fell onto his knee. He states his balance has not been great. He was not syncopal. This was really mechanical fall. He did fall in the grass. He was able to pull him self up but he notes his knee is a bit sore today. He is not on any blood thinners. He never hit head. No pains other than his right knee. He states sitting in bed or sitting down does not hurt. He only has pain when he bears weight. But he is able to bear weight and walk. [facility] Medical History Acute bronchitis Arthritis Back pain Back problem Constipation Dysphagia Emphysema, unspecified Fatigue Former smoker High cholesterol History of colon polyps History of edema History of stress test Hx of pancreatitis Hypertension Neuropathy SOB (shortness of breath) Syncope Thyroid disease Wears dentures Wears glasses Wears hearing aid Home Medications aspirin 81 mg tablet,delayed release 81 mg PO DAILY@0800 09/11/13 [History Last Taken Unknown] enalapril maleate 20 mg tablet 20 mg PO QHS 09/11/13 [History Last Taken Unknown] lovastatin 40 mg tablet 40 mg PO QHS 09/11/13 [History Last Taken Unknown] metoprolol tartrate 50 mg tablet 50 mg PO QHS 09/11/13 [History Last Taken Unknown] amlodipine 5 mg tablet 5 mg PO QHS 04/11/18 [History Last Taken Unknown] levothyroxine 150 mcg capsule 125 mcg PO DAILY 02/27/20 [History Last Taken 03/16/23 06:15] acetaminophen 500 mg tablet 1,000 mg PO DAILY 03/10/23 [History Last Taken Unknown] Allergy/AdvReac Type Severity Reaction Status Date / Time No Known Allergies Allergy Verified 10/19/23 09:23 Family History Brother Cancer Brother Cancer Sister Heart disease Hypertension Myocardial infarction Father Heart disease Myocardial infarction Surgical History History of back surgery History of cholecystectomy History of esophagogastroduodenoscopy (EGD) History of tonsillectomy and adenoidectomy Hx of colonoscopy Hx of right cataract extraction Social History Smoking Status: Former smoker alcohol intake: never substance use type: does not use caffeine: Yes what type of physical activity do you participate in: none frequency: does not exercise ROS ROS ED Constitutional Constitutional ED: Denies chills or fever(s) Cardiovascular Cardiovascular: Denies chest pain, palpitations or racing heartbeat Respiratory/Chest Respiratory/Chest: Denies cough or dyspnea Gastrointestinal Gastrointestinal: Denies nausea or vomiting Musculoskeletal Musculoskeletal: Reports arthralgias; Denies back pain, myalgias or neck pain Integumentary Denies Abrasions or rash Neurologic Neurologic: Denies paresthesias or weakness Hematologic/Lymphatic Hematologic/Lymphatic: Denies easy bleeding or easy bruising EXAM Physical Exam Narrative Exam Narrative: General: Patient awake alert no acute distress sitting comfortably in bed. He is a good informant for details of how the fall occurred. He is a bit hard of hearing. HEENT shows no sign of trauma. Neck is supple no pain with palpation or range of motion. Heart is regular with a rate about 70. Lungs are clear and saturations are normal 98% on room air showing no hypoxia. No chest wall tenderness. Abdomen is mildly obese but is benign. No cervical thoracic or lumbar tenderness. His right knee shows no abrasion. No redness. No swelling. There is no effusion. He has a small amount of tenderness laterally. But it is almost more over lateral edge of the patella and the ligaments near that. No posterior tenderness. No distal tenderness or swelling. Const Vital Signs: 10/19/23 09:15 Temperature 96.8 F L Temperature Source Temporal Pulse Rate 64 Respiratory Rate 15 Blood Pressure 148/74 H Blood Pressure Mean 98 Pulse Ox 98 Oxygen Delivery Method Room Air MDM MDM MDM Narrative Medical decision making narrative: My independent interpretation of the patient's 4 view x-ray of his right knee shows no acute fracture. There is some osteo pi?a and arthritic changes. Calcification of vessels. Final reading is no demonstrated fracture. I think we get the patient home. Ice rest Tylenol would be appropriate. Radiography Diagnostic Testing: Clinical Impression(s) from Imaging Studies Knee X-Ray 10/19/23 09:20 IMPRESSION: No demonstrated fracture. Electronically Signed: Tuan Stevens MD at 9:38 EST , Discharge Plan Triage Chief Complaint: Lower Extremity Injury ED Provider: Sammy Moses Dx/Rx/DC Orders Clinical Impression: Fall at home, Contusion of knee, right Instructions: ED Knee Sprain Prescriptions: No Action levothyroxine 150 mcg capsule 150 mcg capsule 125 mcg PO DAILY enalapril maleate 20 MG tablet 20 mg PO QHS lovastatin 40 MG tablet 40 mg PO QHS aspirin 81 MG tablet 81 mg PO DAILY@0800 metoprolol tartrate 50 MG tablet 50 mg PO QHS amlodipine 5 MG tablet 5 mg PO QHS Patient Comments: acetaminophen [Tylenol Ex Str Rapid Release] 500 mg Tablet 1,000 mg PO DAILY Primary Care Provider: Deysi Elder Referrals: Deysi Elder, SENIOR TECHNICAL EDITOR-C [Primary Care Provider] - 3-5 Days if not improving Disposition Disposition: Home, Self Care
[2023-10-19 10:21] VITALS: PULSE 53; RESP 16; O2SAT 99
== END 2023-10-19 10:51 | disposition home or self-care (01) ==
LOC: ED 10:38
PROVIDERS: Emergency Provider Emergency Medicine; PCP Nurse Practitioner Family; Visit Provider Emergency Medicine
DX: S80.01XA Contusion of right knee, initial encounter (principal); W18.39XA Other fall on same level, initial encounter; Y93.89 Activity, other specified; Y99.8 Other external cause status; Y92.008 Other place in unspecified non-institutional (private) residence as the place of occurrence of the external cause; I10 Essential (primary) hypertension; Z79.82 Long term (current) use of aspirin; Z79.899 Other long term (current) drug therapy; Z87.891 Personal history of nicotine dependence
CPT/HCPCS: 73564; 99282

== ENCOUNTER 2024-01-13 16:13 | Outpatient (RCR) | payer MEDICARE, SELFPAY ==
--- NOTE | 2024-01-13 17:31 | HP.PTEVAL ---
Patient's Visit Information Visit Information Visit Information: NITHIN GALVAN is a 83 year old M referred to Physical Therapy by JAQUAN Faye with a diagnosis of FREQUENT FALLS. Date of Evaluation: 01/13/24 Physical Therapist: Jesus Manuel Perkins, PT, Cert MDT, OCS Visit Plan Frequency: 2x /Week Duration: 4 Weeks Plan: PT INTERVENTIONS STRENGTHENING BLE ,FUNCTIONAL STRENGTHENING ,BALANCE PROGRAM AND ENDURANCE/AEROBIC EX'S Subjective Subjective: This 83 y/o male presents to physical therapy frequent falls. Patient states when walking knee feel weak and gives. Patient fell this past Wednesday with knees give out with fww. Patient seen DR wilkes PT . Patient fell last Jun x2 as well . Patient normally uses cane. Patient is [employer] [employer] [employer] and spouse is at [place] which he sees 3x week. Patient lives mobile home with 4 steps with railing. Patient has walk in shower . Patient does cooking and cleaning. Granddaughter assist with cooking. Son checks on patient. Patient has difficulty with endurance affects housework chores. Denies dizziness or tinnitus. Denies paresthesia/tingling. Bowel/bladder okay. Patient sleeping okay. Patient condition affects QOL and balance. Patient goals to get stronger in legs. SOCIAL: VOCATION: RETIRED Objective Objective: POSTURE: mild forward posture hip/knees flexed GAIT: ambulates with slow tala hip/knees flexed 2 point gait pattern NEURO: denies paresthesia/tingling ,reflexes L3-4,L4-5,L5-S1 1/3 STAIRS: one step at time SIT-STAND : unable with pushing off with BUE FLEXABILITY: hamstrings mod tight ,G-S mild tight MMT: ( peak force)quads left 13.2, right 11.1 ,hamstrings left 12.9 ,right 8.6 hip flexion left 6.4 ,right 6.1, ,hip abd 3.2 BALANCE: fair+ Balance/Special Test Scores Functional Gait Assessment Score: 5 % Disability: 83.3400 CATSIB Score (Max score 120 seconds): 10 Lower Extremity Functional Score: 21 Goals Goal 1:: Patient to be I with HEP Goal Time Frame: 4-6 Weeks Goal 2:: Patient to demonstrate 40% improvement with function and gait Goal Time Frame: 4-6 Weeks Goal 3:: Patient to improve CATSIB BY 10 points to decrease risk of falls Goal Time Frame: 4-6 Weeks Goal 4:: Patient to improve functional gait assessment score by 5-10 points to improve gait and risk of falls Goal Time Frame: 4-6 Weeks Goal 5:: Patient to improve LFES score by 5 points to improve QOL and gait Goal Time Frame: 4-6 Weeks Goal 6:: Patient to improve peak force quads/hams/hip by 5-10 # strength to improve gait Rehabilitation Potential Physical Therapy Diagnosis: This patient has falls with weakness in legs impairs gait ,balance and function thus benefit from skilled PT Rehabilitation Potential: Good Anticipated Interventions Patient/Client Instruction: Educate patient on: Condition and Plan of Care For the Purpose of:: To decrease pain, To increase ROM, To improve muscle performance and motor function, To improve ability to perform ADL's, To increase tolerance to activity/condition/position, To improve ability of physical actions for home/community/work/leisure, To improve health of tissue, To decrease soft tissue restriction, To increase flexibility/ROM, To improve endurance, To improve balance, To improve safety with gait and To assume or resume ADL's Therapeutic Exercise to Include: Strength training, Endurance training, Balance training and Gait and locomotor training Comment: BLE For the Purpose of:: To decrease pain, To increase ROM, To improve muscle performance and motor function, To improve ability to perform ADL's, To increase tolerance to activity/condition/position, To improve ability of physical actions for home/community/work/leisure, To improve health of tissue, To decrease soft tissue restriction, To improve endurance, To improve balance and To improve tolerance to ADL's Text: Thank you for the opportunity to evaluate your patient. For Medicare and Medicare HMO plans, please review the plan of care and approve it. It will need to be FAXED BACK to us at [phone] for Medicare purposes. For Medicare only, by signing this I certify the plan of care. Please let me know if there are questions or concerns regarding this plan of care. Physician Signature: Date:
--- NOTE | 2024-02-08 15:46 | HP.PTDCNRP_ITS ---
Patient Information Patient Information: NITHIN GALVAN was seen in my office for initial evaluation on 01/13/24. The following Plan of Care was established for this patient: POC Established Initial Frequency: 2x /Week Initial Duration: 4 Weeks Anticipated Interventions Patient/Client Instruction: Educate patient on: Condition and Plan of Care For the Purpose of:: To decrease pain, To increase ROM, To improve muscle performance and motor function, To improve ability to perform ADL's, To increase tolerance to activity/condition/position, To improve ability of physical actions for home/community/work/leisure, To improve health of tissue, To decrease soft tissue restriction, To increase flexibility/ROM, To improve endurance, To improve balance, To improve safety with gait and To assume or resume ADL's Therapeutic Exercise to Include: Strength training, Endurance training, Balance training and Gait and locomotor training For the Purpose of:: To decrease pain, To increase ROM, To improve muscle performance and motor function, To improve ability to perform ADL's, To increase tolerance to activity/condition/position, To improve ability of physical actions for home/community/work/leisure, To improve health of tissue, To decrease soft tissue restriction, To improve endurance, To improve balance and To improve tole martín to ADL's Last Seen Last Seen: This patient was last seen in our office . Pertinent comments regarding their Physical therapy will appear below: Patient seen for PT evaluation for frequent falls for HEP At this point I will be discontinuing this patient from physical therapy. I would be happy to see this patient again in the future if found appropriate by the physician. Thank you! Jesus Manuel Perkins, PT, Cert MDT, OCS Balance/Gait/Functional tests Balance/Special Test Scores Functional Gait Assessment Score: 5 % Disability: 83.3400 CATSIB Score (Max score 120 seconds): 10 Lower Extremity Functional Score: 21
== END 2024-01-13 19:00 | disposition home or self-care (01) ==
LOC: PT 16:13
PROVIDERS: PCP Nurse Practitioner Family; Referring Provider Nurse Practitioner Family; Visit Provider Nurse Practitioner Family
DX: R29.6 Repeated falls (principal); R29.898 Other symptoms and signs involving the musculoskeletal system
CPT/HCPCS: 97110; 97162

== ENCOUNTER → 2024-03-01 | Outpatient (CLI) | payer MEDICARE, SELFPAY ==
[2024-03-01 12:38] LABS: Absolute Lymphocyte Count 1.42 X10^3/uL (0.83-4.51); Absolute Neutrophil Count 4.7 X10^3/uL (2.0-7.7); Basophil# 0.05 X10^3/uL; Basophil% 0.7 % (0-1); Eosinophils% 1.4 % (0-5); Hemoglobin 10.6 g/dL (13.0-16.5); Lymphocyte # 1.42 X10^3/ul (0.83-4.51); Lymphocyte % 20.1 % (19-41); Mean Corp Hgb Conc 31.2 g/dL (32-36); Mean Corpuscular Hgb 31.1 pg (27.0-32.0); Mean Corpuscular Volume 99.7 fL (80-94); Mean Platelet Vol. 11.5 fl (6.2-12.0); Monocyte# 0.78 X10^3/uL; Monocyte% 11.1 % (0-10); NRBC Flagged by Analyzer 0 % (0-5); Neutrophil # 4.68 X10^3/uL (2.7-7.7); Neutrophil % 66.4 % (47-70); Platelet Count 211 K/mm3 (150-450); RBC Distribution Width CV 13.2 % (11.6-14.6); RBC Distribution Width SD 47.8 fl (35.1-43.9); Red Blood Count 3.41 M/mm3 (4.6-6.2); White Blood Count 7.1 K/mm3 (4.4-11.0)
[2024-03-01 12:58] LABS: Vitamin B12 711 pg/mL (211-911)
[2024-03-01 15:09] LABS: AST(SGOT) 19 U/L (15-37); Alanine Aminotransfer ALT/SGPT 14 U/L (16-61); Albumin, Serum 3.1 g/dL (3.2-5.0); Alkaline Phosphatase 100 U/L (45-117); Anion Gap 7 (5-15); BUN 28 mg/dL (7-18); BUN/Creat Ratio 15.8 RATIO (10-20); Calcium,Total 7.6 mg/dL (8.5-10.1); Chloride 114 mmol/L (98-107); Cholesterol 101 mg/dL (200); Creatinine, Serum 1.77 mg/dL (0.70-1.30); EST Glomerular Filtration Rate 39 mL/min (>60); Est Glom Filt Rate - Afr Amer 48 mL/min (>60); Globulin 3.1 g/dL (2.2-4.2); Glucose 83 mg/dL (74-106); High Density Lipoprotein 33 mg/dL; Potassium 4.4 mmol/L (3.5-5.1); Protein, Total 6.2 g/dL (6.4-8.2); Sodium Level 142 mmol/L (136-145); Thyroid Stim Hormone (TSH) 0.69 uIU/mL (0.358-3.74); Triglycerides 184 mg/dL; Very Low Density Lipoprotein 37 mg/dL (5-40)
== END | disposition home or self-care (01) ==
LOC: BFHLAB 08:33
PROVIDERS: PCP Nurse Practitioner Family; Referring Provider Nurse Practitioner Family; Visit Provider Nurse Practitioner Family
DX: I10 Essential (primary) hypertension (principal); E78.00 Pure hypercholesterolemia, unspecified; E03.9 Hypothyroidism, unspecified; E53.8 Deficiency of other specified B group vitamins; Z12.5 Encounter for screening for malignant neoplasm of prostate
CPT/HCPCS: 36415; 80053; 80061; 82607; 84153; 84439; 84443; 85025; G0103

== ENCOUNTER 2024-10-30 08:15 | Emergency (ER) | payer MEDICARE, SELFPAY ==
[2024-10-30 08:17] VITALS: BP 161/68; PULSE 80; RESP 18; TEMP 36.8; O2SAT 96; BMI 22.3
--- NOTE | 2024-10-30 08:45 | RAD_ITS ---
STUDY: X-RAY - LEFT KNEE REASON FOR EXAM: Male, 84 years old. Injury/Pain -- Pain status post falls, small effusion TECHNIQUE: 4 view(s) of the knee. COMPARISON: None. FINDINGS: Normal visualized distal femur. Normal visualized proximal tibia and fibula. Normal proximal tibiofibular articulation. Normal medial femorotibial compartment. Normal lateral femorotibial compartment. Normal patellofemoral articulation. Small joint effusion. Atherosclerotic calcification. RAD/Knee 4 or More Views IMPRESSION: Small joint effusion. No fracture is seen. Electronically Signed: Yann Hi MD at 9:10 EST ,
--- NOTE | 2024-10-30 08:54 | EDS_ITS ---
HPI History of Present Illness Chief Complaint: Lower Extremity Injury Detail of Chief Complaint: Left knee pain status post fall Informant: patient and family Occured/Mechanism Mechanism/Context: Yes injury, Yes blunt trauma and Yes same level fall Comment: Injury occurred 1 week ago. He has had several falls in the past several months. Onset/Context/Timing Onset: Weeks (Injury due to fall 1 week ago. Has had near falls since.) Context: Sudden Onset Timing: Continuous and Waxes and wanes Quality of Pain: Dull and Aching Location: Left knee Current Severity: Mild Maximum Severity: Moderate Worsened by: Weightbearing, movement and palpation Relieved by: Nothing Associated Symptoms Associated Symptoms: Positive for Weakness (Patient's had weakness left lower extremity for months. He has walked with a walker since the weakness.); Negative for Parasthesia Narrative Narrative: Patient is an 84-year-old male. He has fallen several times over the past 1 to 2 months. He ambulates with a walker. He apparently fell on the ice. He denied head trauma. Nu[place] neck pain. He denies paresthesia, anesthesia or motor weakness. He denies cardiac respiratory symptoms. Denies black or maroon- colored stool. Son informed me that he had used a walker for the past several months because of weakness in that leg. He never had a workup for a stroke. Prior similar symptoms: Yes Recent Illness/Hospitalization: No [facility] Medical History Wears hearing aid Wears glasses Wears dentures High cholesterol Back pain Syncope Constipation Former smoker Neuropathy History of edema History of stress test Hx of pancreatitis SOB (shortness of breath) Emphysema, unspecified Back problem Arthritis History of colon polyps Dysphagia Acute bronchitis Thyroid disease Fatigue Hypertension Home Medications ?Medication ?Instructions ?Recorded ?Last Taken ?Type aspirin 81 mg tablet,delayed 81 mg PO DAILY@0800 09/11/13 Unknown History release enalapril maleate 20 mg tablet 20 mg PO QHS 09/11/13 Unknown History lovastatin 40 mg tablet 40 mg PO QHS 09/11/13 Unknown History metoprolol tartrate 50 mg tablet 50 mg PO QHS 09/11/13 Unknown History amlodipine 5 mg tablet 5 mg PO QHS 04/11/18 Unknown History levothyroxine 150 mcg capsule 125 mcg PO DAILY 02/27/20 03/16/23 06:15 History acetaminophen 500 mg tablet 1,000 mg PO DAILY 03/10/23 Unknown History hydrocodone-acetaminophen 5-325mg 1 tab PO Q6H PRN PRN Pain 3 days 10/30/24 Un known Rx 5mg-325mg #10 TABLETS Allergy/AdvReac Type Severity Reaction Status Date / Time No Known Allergies Allergy Verified 10/19/23 09:23 Family History Brother Cancer Brother Cancer Sister Heart disease Hypertension Myocardial infarction Father Heart disease Myocardial infarction Surgical History History of esophagogastroduodenoscopy (EGD) Hx of colonoscopy Hx of right cataract extraction History of tonsillectomy and adenoidectomy History of back surgery History of cholecystectomy Social History Smoking Status: Former smoker alcohol intake: never substance use type: does not use caffeine: Yes what type of physical activity do you participate in: none frequency: does not exercise ROS ROS ED Constitutional Constitutional ED: Denies chills or fever(s) Eyes Eyes: Denies blurry vision or change in vision ENT ENT ED: Reports other Details: Hard of hearing. Did not wear his hearing aids to the ER. ; Denies ear pain, rhinorrhea or sore throat Cardiovascular Cardiovascular: Denies chest pain or palpitations Gastrointestinal Gastrointestinal: Denies abdominal pain, nausea or vomiting Musculoskeletal Musculoskeletal: Denies arthralgias, back pain, myalgias or neck pain Integumentary Reports Abrasions and other Details: Multiple bruises right and left lower extremity over the knee region. Neurologic Neurologic: Reports other Details: Weakness left lower extremity requiring walker for the past several months. ; Denies headache(s) or paresthesias Hematologic/Lymphatic Hematologic/Lymphatic: Denies easy bleeding or easy bruising EXAM Physical Exam Const Vital Signs: 10/30/24 08:17 Temperature 98.3 F Temperature Source Temporal Pulse Rate 80 Respiratory Rate 18 Blood Pressure 161/68 H Blood Pressure Mean 99 Pulse Ox 96 Oxygen Delivery Method Room Air Positive well nourished and well developed General Appearance ED: well developed and NAD HEENT Reports moist mucous membranes normocephalic and atraumatic Eyes PERRL Eyes Narrative: Extraocular muscles are intact. Neck full ROM Resp normal respiratory effort Cardio regular rate and regular rhythm GI non-tender and non-distended GI Narrative: There is no pain of the pelvis. Palpation: soft Extremity Negative for normal to inspection or full ROM Extremity Narrative: Patient has weakness with hip flexion and extension of the knee. There are bruises noted both right and left knee. There is swelling to left knee. The patella is not ballotable or tender. There is a small effusion. He has joint line tenderness medially. There is slight laxity with varus and valgus stress testing and is greater than the uninjured side. There is no mass or pulsatile mass noted the popliteal fossa. Tierra's test was negative. Modified Renaldo's test causes discomfort where my finger was medially however there was no click appreciated. There is no pain the patient is a medial or lateral malleolus. General Extremety ED: Yes weight-bearing difficulty General Extremity: weight-bearing difficulty Neuro oriented x3, CN's II-XII intact bilaterally and moves all extremities Sensorium / Orientation: alert Motor Exam: Negative for strength 5/5 throughout Psych mental status grossly normal Skin Trauma: abrasion MDM MDM MDM Narrative Medical decision making narrative: With persistent pain and effusion will obtain x-ray to evaluate for fracture versus ligamentous injury which may represent a meniscus. Suspect patient had a stroke several months ago in light of the weakness left leg. History & Record Review Additional record(s) reviewed:: Prior outpatient record and Prior ED visit (Patient was seen October 26, 2023 for right knee contusion. H&P for encounter for screening for malignant neoplasm of the colon was reviewed. This was documented by Dr. Hemanth Phipps March 16, 2023.) Radiography Chest X-Ray - ED: Read by ED Physician (4 view x-ray of the left knee was independently interpreted by me at 0852 as negative for any acute pathology. He has degenerative changes. There is significant evidence of atherosclerotic disease with calcification of multiple vessels. There may be a small effusion.) Treatment and Re-Evaluation Narrative: Will treat patient's pain with opiate analgesia. He is not a candidate for NSAIDs. He has history of gastric disease. Discharge Plan Triage Chief Complaint: Lower Extremity Injury ED Provider: Stefan Maloney Dx/Rx/DC Orders Clinical Impression: Effusion of knee joint, left, Hypertension, History of esophagogastroduodenoscopy (EGD), Contusion of multiple sites of left lower extremity, Contusion of multiple sites of right lower extremity, Frequent falls Instructions: ED Knee Effusion Prescriptions: New hydrocodone-acetaminophen 5-325 mg tablet 1 tab PO Q6H PRN PRN (Reason: Pain) 3 Days Qty: 10 0RF No Action levothyroxine 150 mcg capsule 125 mcg PO DAILY enalapril maleate 20 MG tablet 20 mg PO QHS lovastatin 40 MG tablet 40 mg PO QHS aspirin 81 MG tablet 81 mg PO DAILY@0800 metoprolol tartrate 50 MG tablet 50 mg PO QHS amlodipine 5 MG tablet 5 mg PO QHS Patient Comments: acetaminophen [Tylenol Ex Str Rapid Release] 500 mg Tablet 1,000 mg PO DAILY Primary Care Provider: Deysi Elder Referrals: Deysi Elder, PORTABLE ROUTER OPERATOR-C [Primary Care Provider] - 5-7 Days Activity Restrictions/Additional Instructions: 1. Apply ice 6 times a day. Print Language: Bhutanese Disposition Disposition: Home, Self Care
== END 2024-10-30 09:34 | disposition home or self-care (01) ==
LOC: ED 09:20
PROVIDERS: Emergency Provider Emergency Medicine; PCP Nurse Practitioner Family; Visit Provider Emergency Medicine
DX: S80.01XA Contusion of right knee, initial encounter (principal); S80.02XA Contusion of left knee, initial encounter; W00.0XXA Fall on same level due to ice and snow, initial encounter; R29.6 Repeated falls; I10 Essential (primary) hypertension; Z79.899 Other long term (current) drug therapy; Z87.891 Personal history of nicotine dependence
CPT/HCPCS: 73564; 99284

== ENCOUNTER 2024-12-10 10:46 | Inpatient (IN) | payer MEDICARE, SELFPAY ==
[2024-12-10] VITALS (7 sets, daily range): BP systolic 107–166; BP diastolic 61–94; PULSE 66–77; RESP 16–18; TEMP 36.3–36.6; O2SAT 96–99; BMI 20.8
--- NOTE | 2024-12-10 11:13 | ED.VIS.FALL ---
HPI HPI - Fall History of Present Illness Chief Complaint: Fall Informant: patient, family and EMS Narrative Narrative: 84-year-old male who lives at home alone states he bent over to pick something up and when he stood up he sort of lost his balance and fell backwards hitting his right shoulder and skinning his elbows. No other injuries. Did not hit his head or have any loss of consciousness. He takes aspirin no anticoagulants. Main injury is his right shoulder. Son accompanies him. Patient states he has balance issues for quite a while, he states when this occurred he did not feel vertiginous or lightheaded or have any other prodromal symptoms. [facility] Medical History Wears hearing aid Wears glasses Wears dentures High cholesterol Back pain Syncope Constipation Former smoker Neuropathy History of edema History of stress test Hx of pancreatitis SOB (shortness of breath) Emphysema, unspecified Back problem Arthritis History of colon polyps Dysphagia Acute bronchitis Thyroid disease Fatigue Hypertension Home Medications ?Medication ?Instructions ?Recorded ?Last Taken ?Type aspirin 81 mg tablet,delayed 81 mg PO DAILY@0800 09/11/13 12/10/24 History release enalapril maleate 20 mg tablet 20 mg PO QHS 09/11/13 12/09/24 History lovastatin 40 mg tablet 40 mg PO QHS 09/11/13 12/09/24 History metoprolol tartrate 50 mg tablet 50 mg PO QHS 09/11/13 12/09/24 History amlodipine 5 mg tablet 5 mg PO QHS 04/11/18 12/09/24 History acetaminophen 500 mg tablet 1,000 mg PO DAILY PRN pain 03/10/23 Unknown History levothyroxine 125 mcg tablet 125 mcg PO DAILY 12/10/24 12/10/24 History Allergy/AdvReac Type Severity Reaction Status Date / Time No Known Allergies Allergy Verified 12/10/24 10:50 Family History Brother Cancer Brother Cancer Sister Heart disease Hypertension Myocardial infarction Father Heart disease Myocardial infarction Surgical History History of esophagogastroduodenoscopy (EGD) Hx of colonoscopy Hx of right cataract extraction History of tonsillectomy and adenoidectomy History of back surgery History of cholecystectomy Social History Smoking Status: Former smoker alcohol intake: never substance use type: does not use caffeine: Yes what type of physical activity do you participate in: none frequency: does not exercise ROS ROS ED Constitutional Constitutional ED: Denies chills or fever(s) Eyes Eyes: Denies change in vision or diplopia ENT ENT ED: Denies ear pain, epistaxis, facial pain or rhinorrhea Cardiovascular Cardiovascular: Denies chest pain or palpitations Respiratory/Chest Respiratory/Chest: Denies cough or dyspnea Gastrointestinal Gastrointestinal: Denies abdominal pain, diarrhea, melena, nausea or vomiting Genitourinary Genitourinary ED: Denies dysuria or hematuria Musculoskeletal Musculoskeletal: Reports extremity pain; Denies back pain or neck pain Integumentary Reports Abrasions; Denies abscess, laceration or rash Neurologic Neurologic: Denies confusion, headache(s), paresthesias or weakness EXAM Physical Exam Const Vital Signs: 12/10/24 10:48 12/10/24 10:50 Temperature 97.8 F Temperature Source Oral Pulse Rate 74 Respiratory Rate 16 Respiratory Effort Normal Respiratory Depth Normal Respiratory Pattern Normal Blood Pressure 166/82 H Blood Pressure Mean 110 Pulse Ox 99 98 Oxygen Delivery Method Room Air Room Air Positive well nourished and well developed General Appearance ED: well developed and NAD HEENT Reports TM's clear and nasal mucous membranes and turbinates normal HEENT Narrative: No Carballo sign, CSF otorhinorrhea, hemotympanum, periorbital ecchymosis. No signs of HEENT trauma; there is some dried blood on his left parietal scalp/hair, without a lesion or tenderness to explain it. Probably came from his elbow. atraumatic Face and Sinus: Negative for facial tenderness Tympanic Membrane ED: Yes TM's clear Eyes PERRL and EOMs intact bilaterally Visual Acuity: other Other Details: no entrapment or pain with extraocular movements Neck full ROM and supple General: Negative for tenderness Chest Wall inspection of chest normal and palpation of chest normal Chest: symmetrical chest wall rise; Negative for crepitus or tenderness Resp normal respiratory effort and clear to auscultation bilaterally Percussion: other equal BS bilat Cardio no murmurs Rate: regular rate Rhythm: regular rhythm GI normal to inspection, nondistended, normoactive bowel sounds, soft to palpation and non-tender Back/Spine normal ROM Cervical Spine: Negative for cervical spine tenderness Thoracic Spine / Upper Back: Negative for thoracic spinal tenderness Lumbar Spine / Lower Back: Negative for lumbar spinal tenderness Extremity Negative for full ROM Extremity Narrative: Deformity with tenderness in the right shoulder girdle, consistent with an anterior dislocation possibly. There is a paucity in the subacromial fossa. Limited range of motion. No tenderness distal to this. He has minor skin tears on both olecranon processes but no bony tenderness throughout the elbows. Full range of motion throughout both lower extremities without any pain or limitation including hips. Pelvis stable to AP compression. General Extremety ED: Yes tenderness Neuro oriented x3, CN's II-XII intact bilaterally, moves all extremities, no focal motor deficits and no sensory deficits noted [place] Coma Scale: document GCS findings Spontaneous Obeys Commands Oriented 15 Sensorium / Orientation: awake and alert Psych mental status grossly normal and thought process normal Skin no wounds Lesions: no lesions Rashes: no rashes MDM MDM MDM Narrative Medical decision making narrative: 5 view x-ray series of the right shoulder on my interpretation show proximal humerus fracture involving the surgical neck, and there is angulation with apex anterior, along with soft tissue swelling there, mimicking an anterior dislocation but he does not appear to be dislocated. Clinically has neurovascular intact distally. Chest x-ray 1 view for screening purposes negative for anything acute intrathoracic on my interpretation. He is able to breathe well without splinting with deep inspiration and clinically are not suspicious for a rib fracture. His lower extremities and pelvis are nontender. However since he lives on his own, and is right-hand dominant, he is going to be at significant disability and he and son are in agreement with admission for pain control, PT/OT evaluations, and short-term rehab placement. I spoke with orthopedics Dr. Hernandez, he reviewed the films and agrees with my assessment, stating that he does not need to consult on this patient while he is an inpatient, but states that the patient can follow-up in his office within the next couple weeks. Lab Data Attestation: I reviewed the patient's lab results. Labs: Laboratory Results - last 24 hr 12/10/24 11:39 WBC 10.8 RBC 3.56 L Hgb 11.1 L Hct 35.2 L MCV 98.9 H MCH 31.2 MCHC 31.5 L RDW Std Deviation 50.4 H RDW Coeff of Dina 13.8 Plt Count 186 MPV 10.8 Immature Gran % (Auto) 0.700 Neut % (Auto) 73.7 H Lymph % (Auto) 13.8 L [place] % (Auto) 10.5 H Eos % (Auto) 0.7 Baso % (Auto) 0.6 Absolute Neuts (auto) 7.9 H Absolute Lymphs (auto) 1.48 Nucleated RBC % 0 Sodium 143 Potassium 4.6 Chloride 114 H Carbon Dioxide 20.0 L Anion Gap 8 BUN 25 H Creatinine 1.76 H Estim Creat Clear Calc 29.60 Est GFR (MDRD) Af Amer 48 L Est GFR (MDRD) Non-Af 40 L BUN/Creatinine Ratio 14.2 Glucose 107 H Calcium 8.2 L Radiography Diagnostic Testing: Clinical Impression(s) from Imaging Studies Chest X-Ray 12/10/24 11:50 IMPRESSION: No radiographic evidence of acute cardiopulmonary disease Reading Location: [id number] Digital Shoulder X-Ray 12/10/24 11:50 IMPRESSION: Right humeral neck fracture with no significant displacement Reading Location: [id number] Digital Rhythm Strip Rhythm Strip: Sinus Rhythm Rate: 75 Ectopy: None Management Discussion w/another healthcare provider: Hospitalist and Child Development Assistant (Ortho Dr. Hernandez) Discharge Plan Dx/Rx/DC Orders Clinical Impression: Closed fracture of proximal end of right humerus, Skin tear of elbow without complication, Accidental fall, Chronic renal insufficiency Disposition Disposition: Acute Care [facility]
[2024-12-10] MEDS: Ondansetron 4 MG/2 ML Vial IV (11:31)
[2024-12-10] MEDS: Morphine 2 MG/ML Syringe IV ×2 (11:31→12:42)
[2024-12-10 11:49] LABS: Absolute Lymphocyte Count 1.48 X10^3/uL (0.83-4.51); Absolute Neutrophil Count 7.9 X10^3/uL (2.0-7.7); Basophil# 0.06 X10^3/uL; Basophil% 0.6 % (0-1); Eosinophil# 0.08 X10^3/uL; Eosinophils% 0.7 % (0-5); Hematocrit 35.2 % (40-54); Hemoglobin 11.1 g/dL (13.0-16.5); Lymphocyte # 1.48 X10^3/ul (0.83-4.51); Lymphocyte % 13.8 % (19-41); Mean Corp Hgb Conc 31.5 g/dL (32-36); Mean Corpuscular Hgb 31.2 pg (27.0-32.0); Mean Corpuscular Volume 98.9 fL (80-94); Mean Platelet Vol. 10.8 fl (6.2-12.0); Monocyte# 1.13 X10^3/uL; Monocyte% 10.5 % (0-10); NRBC Flagged by Analyzer 0 % (0-5); Neutrophil # 7.93 X10^3/uL (2.7-7.7); Neutrophil % 73.7 % (47-70); Platelet Count 186 K/mm3 (150-450); RBC Distribution Width CV 13.8 % (11.6-14.6); RBC Distribution Width SD 50.4 fl (35.1-43.9); Red Blood Count 3.56 M/mm3 (4.6-6.2); White Blood Count 10.8 K/mm3 (4.4-11.0)
--- NOTE | 2024-12-10 11:50 | RAD_ITS ---
PROCEDURE: CHEST 1 VIEW REASON FOR EXAM: Fall TECHNIQUE: Frontal and lateral views of the chest. COMPARISON: 06/14/2021. FINDINGS: The heart size is normal. There are atherosclerotic calcifications of the thoracic aorta. The lungs are clear. Degenerative changes are identified within the thoracic spine. RAD/Chest 1 View IMPRESSION: No radiographic evidence of acute cardiopulmonary disease Reading Location: [facility]
--- NOTE | 2024-12-10 11:50 | RAD_ITS ---
PROCEDURE: SHOULDER MIN 2 VIEWS REASON FOR EXAM: Injury TECHNIQUE: Four views of the right shoulder COMPARISON: None. FINDINGS: RIGHT SHOULDER: Cortical irregularity about the right humeral neck. Mild degenerative changes in the joint space No significant displacement Soft tissues are unremarkable. RAD/Shoulder min 2 Views IMPRESSION: Right humeral neck fracture with no significant displacement Reading Location: [facility]
[2024-12-10 11:57] LABS: Anion Gap 8 (5-15); BUN 25 mg/dL (7-18); BUN/Creat Ratio 14.2 RATIO (10-20); Calcium,Total 8.2 mg/dL (8.5-10.1); Chloride 114 mmol/L (98-107); Creatinine, Serum 1.76 mg/dL (0.70-1.30); EST Glomerular Filtration Rate 40 mL/min (>60); Est Glom Filt Rate - Afr Amer 48 mL/min (>60); Glucose 107 mg/dL (74-106); Potassium 4.6 mmol/L (3.5-5.1); Sodium Level 143 mmol/L (136-145)
--- NOTE | 2024-12-10 12:39 | PCM.HP.STD ---
HPI - General General Date of Admission: 12/10/24 Date of Service: 12/10/24 Chief Complaint: Fall and right shoulder fracture HPI Narrative NITHIN GALVAN, is a 84 M came to ED after he had a fall on right shoulder after he lost balance walker. Patient had severe pain after fall. Denies passing out or LOC. Patient is states he has recurrent fall and uses walker to go from one room to another and wheelchair to move longer distance. Patient has mild bruising in the knees probably from previous fall. He has a skin tear on elbows. No head injury. Denies nausea vomiting lightheadedness or vertigo. In ED, patient had an x-ray which shows right humerus fracture with no significant displacement. Patient is further admitted. [facility] Medical History Wears hearing aid Wears glasses Wears dentures High cholesterol Back pain Syncope Constipation Former smoker Neuropathy History of edema History of stress test Hx of pancreatitis SOB (shortness of breath) Emphysema, unspecified Back problem Arthritis History of colon polyps Dysphagia Acute bronchitis Thyroid disease Fatigue Hypertension Home Medications ?Medication ?Instructions ?Recorded ?Last Taken ?Type aspirin 81 mg tablet,delayed 81 mg PO DAILY@0800 09/11/13 12/10/24 History release enalapril maleate 20 mg tablet 20 mg PO QHS 09/11/13 12/09/24 History lovastatin 40 mg tablet 40 mg PO QHS 09/11/13 12/09/24 History metoprolol tartrate 50 mg tablet 50 mg PO QHS 09/11/13 12/09/24 History amlodipine 5 mg tablet 5 mg PO QHS 04/11/18 12/09/24 History acetaminophen 500 mg tablet 1,000 mg PO DAILY PRN pain 03/10/23 Unknown History levothyroxine 125 mcg tablet 125 mcg PO DAILY 12/10/24 12/10/24 History Allergy/AdvReac Type Severity Reaction Status Date / Time No Known Allergies Allergy Verified 12/10/24 10:50 Family History Brother Cancer Brother Cancer Sister Heart disease Hypertension Myocardial infarction Father Heart disease Myocardial infarction Surgical History History of esophagogastroduodenoscopy (EGD) Hx of colonoscopy Hx of right cataract extraction History of tonsillectomy and adenoidectomy History of back surgery History of cholecystectomy Social History Smoking Status: Former smoker alcohol intake: never substance use type: does not use caffeine: Yes what type of physical activity do you participate in: none frequency: does not exercise ROS ROS Narrative Constitutional: Reports chronic fatigue and weakness. No fever. HEENT: Reports systems reviewed and no addt'l complaints, except as documented Respiratory/Chest: No acute shortness of breath or respiratory distress or wheezing. CVS: No chest pain pressure or tightness. Denies major chronic heart disease including CAD/CHF. Gastrointestinal: Denies coffee ground emesis, hematemesis or vomiting Genitourinary: Denies burning urination or new urinary tract symptoms Musculoskeletal: As described in HPI Neurologic: Denies seizure-like symptoms. skin: Skin tear and elbows. Mild bruise from recent fall over knees Endocrinology: Reports systems reviewed and no addt'l complaints, except as documented Hematologic/Lymphatic: Reports systems reviewed and no addt'l complaints, except as documented Rest 14 ROS are negative except as mentioned in HPI Vital Signs Vital Signs Vital Signs: 12/10/24 10:48 12/10/24 10:50 Temperature 97.8 F Temperature Source Oral Pulse Rate 74 Respiratory Rate 16 Respiratory Effort Normal Respiratory Depth Normal Respiratory Pattern Normal Blood Pressure 166/82 H Blood Pressure Mean 110 Pulse Ox 99 98 Oxygen Delivery Method Room Air Room Air Weight Weight: 145 lb 1.027 oz Body Mass Index (BMI) 20.8 Physical Exam Narrative General: Alert, Oriented x3, Cooperative HEENT: Atraumatic, PERRLA, EOMI, Normocephalic Oral: No Gingival or Mucosal Lesions/ Ulcerations Neck: Supple, No JVD, Negative Carotid Bruits Chest wall/Lungs: Air entry diminished in bilateral lung bases. No crepitation/rhonchi Cardiovascular: Regular rate, Regular Rhythm, Normal S1, Normal S2, No M/G/R Abdomen: Bowel Sounds Present, Soft, Non Tender, Non-Distended : No dysuria. No renal angle tenderness. No suprapubic tenderness. Extremities: No edema, Capillary Refill Less than 3 Seconds Skin: Skin tear over elbows. Musculoskeletal: Right shoulder tender over greater trochanter area. No significant subcutaneous swelling. No hematoma. RUE on sling and swath. Neurological: Cranial nerves II-XII grossly intact, DTR 2+/4. No acute focal neurological deficit. Psych/Mental Status: Flat affect Results Lab / Micro Data 12/10/24 11:39 12/10/24 11:39 Labs: Laboratory Results - last 24 hr 12/10/24 11:39: WBC 10.8, RBC 3.56 L, Hgb 11.1 L, Hct 35.2 L, MCV 98.9 H, MCH 31.2, MCHC 31.5 L, RDW Std Deviation 50.4 H, RDW Coeff of Dina 13.8, Plt Count 186, MPV 10.8, Immature Gran % (Auto) 0.700, Neut % (Auto) 73.7 H, Lymph % (Auto) 13.8 L, Stanley % (Auto) 10.5 H, Eos % (Auto) 0.7, Baso % (Auto) 0.6, Absolute Neuts (auto) 7.9 H, Absolute Lymphs (auto) 1.48, Nucleated RBC % 0, Sodium 143, Potassium 4.6, Chloride 114 H, Carbon Dioxide 20.0 L, Anion Gap 8, BUN 25 H, Creatinine 1.76 H, Estim Creat Clear Calc 29.60, Est GFR (MDRD) Af Amer 48 L, Est GFR (MDRD) Non-Af 40 L, BUN/Creatinine Ratio 14.2, Glucose 107 H, Calcium 8.2 L Rhythm Strip Rhythm Strip: Sinus Rhythm Rate: 75 Ectopy: None Imaging Radiology Impression Chest X-Ray 12/10/24 11:50 IMPRESSION: No radiographic evidence of acute cardiopulmonary disease Reading Location: [facility] Shoulder X-Ray 12/10/24 11:50 IMPRESSION: Right humeral neck fracture with no significant displacement Reading Location: [facility] Assessment & Plan Assessment/Plan (1) Accidental fall: (2) Right humeral fracture: PLAN: Plan 81-year-old gentleman being admitted for right humerus fracture after fall. No LOC/syncope 1. Acute debility due to acute on recurrent fall from a right humeral fracture with no significant displacement: Patient is being admitted to [facility] floor. X-ray of shoulder x-ray and chest x-ray reviewed. No radiographic evidence of acute cardiopulmonary disease. Pain control and muscle relaxant. On Tylenol 1 g every 8 hourly. PT and OT ordered. ED physician discussed with orthopedic surgeon Dr. Hernandez. He said that inpatient consult is not needed but he will see him in the office after discharge in 1 to 2 weeks. Patient on baby aspirin but denies any cardiac disease. Will hold it. 2. Hypertension: BP 166/82 in ED. Monitor BP and control. On metoprolol and enalapril resumed. 3. COPD/emphysema, former smoker: Patient denies any acute shortness of breath cough or URI symptoms. DuoNeb as needed. Patient not on maintenance inhaler. 4. Dyslipidemia: Lovastatin at home changed to atorvastatin formulary here. 5. Hypothyroidism: On levothyroxine. TSH ordered for tomorrow AM. DVT prophylaxis, high risk: Heparin 5000 unit subcutaneous every 8 hourly. Discontinue if platelet count drops less than 50,000 or hemoglobin less than 8 g% Living will/advanced directive/end of life care: Patient does not have living will or advanced directive. He does not have designated power of senior trial attorney for health but son is next of kin and present in the ED. After discussion of benefits/risks procedures involved with full code, DNR CC arrest and DNR CC, the patient and his son opted for DNR CC arrest with no intubation. Patient doesn't want artificial life support including intubation, tube feed, ventilator and/chest compression, central venous catheter, vasopressor and DC shock if needed Total time spent in [id number] encounter in discussion of advanced directive 17 minutes. Laboratory Results 12/10/24 11:39: WBC 10.8, RBC 3.56 L, Hgb 11.1 L, Hct 35.2 L, MCV 98.9 H, MCH 31.2, MCHC 31.5 L, RDW Std Deviation 50.4 H, RDW Coeff of Dina 13.8, Plt Count 186, MPV 10.8, Immature Gran % (Auto) 0.700, Neut % (Auto) 73.7 H, Lymph % (Auto) 13.8 L, Stanley % (Auto) 10.5 H, Eos % (Auto) 0.7, Baso % (Auto) 0.6, Absolute Neuts (auto) 7.9 H, Absolute Lymphs (auto) 1.48, Nucleated RBC % 0, Sodium 143, Potassium 4.6, Chloride 114 H, Carbon Dioxide 20.0 L, Anion Gap 8, BUN 25 H, Creatinine 1.76 H, Estim Creat Clear Calc 29.60, Est GFR (MDRD) Af Amer 48 L, Est GFR (MDRD) Non-Af 40 L, BUN/Creatinine Ratio 14.2, Glucose 107 H, Calcium 8.2 L Clinical Impression(s) from Imaging Studies Chest X-Ray 12/10/24 11:50 IMPRESSION: No radiographic evidence of acute cardiopulmonary disease Shoulder X-Ray 12/10/24 11:50 IMPRESSION: Right humeral neck fracture with no significant displacement Reading Location: [facility] Charges/Coding Visit Charges Inpatient E&M: 10906 Init Hosp L3 Procedures Hospitalists Procedures: 80566 Advncd Care Plan 30 Min
--- NOTE | 2024-12-10 13:45 | CASEMGMT ---
Care Management Face to Face with patient for initial transition planning/care coordination assessment in the ED.? This magazine writer introduced self and role at [facility]. Patient alert and oriented. Patient willing to participate in assessment and is able to answer all questions appropriately.? Care providers, pharmacy, and demographics verified. Patient?s son, Hardik Saba was also present. Admitting Diagnosis: Closed fracture of proximal end of right humerus, skin tear, accidental fall and chronic renal insufficiency. Other diagnosis history: Including but may not be limited to: Neuropathy, HTN, Emphysema, Thyroid Disease, and Arthritis. PCP: Dr. Deysi Elder Specialists: None Preferred Pharmacy: [facility] Insurance: Yes; MMO Medicare Prescription Benefit: Yes Living Will/HPOA: ?No living will, HPOA was identified as patient?s son, Hardik Saba.? Patient believes paperwork to be at home but if Hardik is unable to locate, patient would like to have this completed during the hospital stay. LNOK: Patient?s , Sweta and patient?s sons, Hardik of [place] and Eduar of [place]. Living Arrangements: Patient lives in a mobile home but is considering transitioning into a long-term SNF.? Patient?s preference is [facility] in [place] as that?s where patient?s is. Patient has a ramp leading in/out of his trailer however certain doorways to rooms in the trailer are not wide enough to accommodate patient?s wheelchair and patient has not felt safe walking due to the number of falls he?s had. Patient has been trying to ambulate with his rollator in those rooms however it?s created a fall hazard. Transportation: Patient does not drive.? Patient?s sons provide transportation as needed. DME: Wheelchair ramp, wheelchair, rollator, standard cane (doesn?t use), molded grid and parts inspector and hearing aids. HHC: None in the past but interested if ever returns home if insurance will pay. tension worker provided written resources for this. SNF/Rehab: No history of. Community Resources: None. Dam Tender provided written resources for HHC, ERS devices with fall detection, how to apply for Medicaid. tension worker also provided verbal and written fall prevention education. Patient feels as though he needs some kind of therapy to help him be able to walk better as patient feels his feet are not doing what they?re supposed to do and patient frequently feels as though he?s about to trip over his own feet. Behavioral Health History: Denied Patient goals: Patient wishes to discharge to [facility] in [place] when medically ready. Patient denies any further needs or concerns at this time. Disposition Plan: admission to acute; RN CM/SW to follow for discharge planning needs that may arise. Jayda Noble, PLASTER FOREMAN, IMPROVEMENT DIRECTOR
[2024-12-10] MEDS: 0.45% Normal Saline 1,000 ML 75 ML IV (15:12)
[2024-12-10] MEDS: oxyCODONE 5 MG Tablet PO (17:29)
[2024-12-10] MEDS: tiZANidine HCl 2 MG Tablet PO (17:29)
[2024-12-10] MEDS: Heparin Injection (Vial) 5,000 UNIT/ML VIAL 5000 UNIT SC (22:56)
[2024-12-10] MEDS: Atorvastatin Calcium 20 MG Tablet PO (22:56)
[2024-12-10] MEDS: Senna/Docusate Sodium 1 Tablet 2 TABLET PO (22:56)
[2024-12-10] MEDS: Acetaminophen 500 MG Tablet 1000 MG PO (22:56)
[2024-12-10] MEDS: Metoprolol Tartrate 50 MG Tablet PO (22:57)
[2024-12-11 03:48] VITALS: BMI 22.6
[2024-12-11] MEDS: 0.45% Normal Saline 1,000 ML 75 ML IV (04:50)
[2024-12-11 04:52] VITALS: BP 144/58; PULSE 56; RESP 16; TEMP 36.3; O2SAT 96
[2024-12-11] MEDS: Heparin Injection (Vial) 5,000 UNIT/ML VIAL 5000 UNIT SC ×3 (05:10→21:51)
[2024-12-11] MEDS: Levothyroxine 125 MCG Tablet PO (05:11)
[2024-12-11] MEDS: Acetaminophen 500 MG Tablet 1000 MG PO ×3 (05:11→21:52)
[2024-12-11] MEDS: oxyCODONE 5 MG Tablet PO ×3 (06:53→22:05)
[2024-12-11 08:55] LABS: Absolute Lymphocyte Count 1.82 X10^3/uL (0.83-4.51); Absolute Neutrophil Count 6.1 X10^3/uL (2.0-7.7); Basophil# 0.03 X10^3/uL; Basophil% 0.3 % (0-1); Eosinophil# 0.05 X10^3/uL; Eosinophils% 0.5 % (0-5); Hematocrit 31.8 % (40-54); Hemoglobin 9.4 g/dL (13.0-16.5); Lymphocyte # 1.82 X10^3/ul (0.83-4.51); Lymphocyte % 19.6 % (19-41); Mean Corp Hgb Conc 29.6 g/dL (32-36); Mean Corpuscular Hgb 31.4 pg (27.0-32.0); Mean Corpuscular Volume 106.4 fL (80-94); Mean Platelet Vol. 10.8 fl (6.2-12.0); Monocyte# 1.27 X10^3/uL; Monocyte% 13.7 % (0-10); NRBC Flagged by Analyzer 0 % (0-5); Neutrophil # 6.07 X10^3/uL (2.7-7.7); Neutrophil % 65.6 % (47-70); Platelet Count 157 K/mm3 (150-450); RBC Distribution Width CV 14.1 % (11.6-14.6); RBC Distribution Width SD 55.2 fl (35.1-43.9); Red Blood Count 2.99 M/mm3 (4.6-6.2); White Blood Count 9.3 K/mm3 (4.4-11.0)
[2024-12-11 09:00] VITALS: RESP 18
[2024-12-11 09:34] LABS: Anion Gap 10 (5-15); BUN 37 mg/dL (7-18); BUN/Creat Ratio 16.2 RATIO (10-20); Calcium,Total 7.6 mg/dL (8.5-10.1); Chloride 113 mmol/L (98-107); Creatinine, Serum 2.28 mg/dL (0.70-1.30); EST Glomerular Filtration Rate 29 mL/min (>60); Est Glom Filt Rate - Afr Amer 35 mL/min (>60); Estimated Creatinine Clearance 24.79 ml/min; Glucose 105 mg/dL (74-106); Sodium Level 140 mmol/L (136-145); Thyroid Stim Hormone (TSH) 0.289 uIU/mL (0.358-3.740)
[2024-12-11] MEDS: tiZANidine HCl 2 MG Tablet PO ×2 (09:50→22:05)
[2024-12-11] MEDS: amLODIPine 5 MG Tablet PO (09:55)
[2024-12-11] MEDS: Menthol/Lanolin/Calamine/Znox 113 GM Tube 1 APPLIC TOPICAL ×2 (09:55→21:51)
[2024-12-11] MEDS: Senna/Docusate Sodium 1 Tablet 2 TABLET PO ×2 (09:55→22:35)
[2024-12-11 10:00] VITALS: BP 124/65; PULSE 78; RESP 18; TEMP 36.4; O2SAT 96
--- NOTE | 2024-12-11 11:07 | CASEMGMT ---
Social Work- SW met with pt to discuss pt preferences for discharge. Pt declines a SNF list; FOC is [facility], as pt resides there. Pt son reports that pt has been using a wheelchair for the past month and does not feel safe at home. SW provided education on skilled vs LTC. Pt would like to be placed skilled if possible to see if he can build strength. Pt son reports that they will work with [facility] on LTC if needed. Pt requests HCP[employer] paperwork be completed. MADDY completed HCP[employer] paperwork with pt naming Hardik as primary agent and Eduar, son, as alternate agent. Pt provided with original and two copies for agents; copy placed on chart. Plan: [facility]; skilled level of care [facility]
--- NOTE | 2024-12-11 14:37 | CASEMGMT ---
Addendum entered by Phylicia Izaguirre 12/11/24 16:15: [facility] has accepted but are OON. SW updated. Phylicia Izaguirre DC Planning Asst. Original Note: Discharge Planning Referral sent to [facility]. Phylicia Izaguirre DC Planning Asst.
[2024-12-11 15:50] VITALS: BP 112/56; PULSE 58; RESP 18; TEMP 36.8; O2SAT 98
--- NOTE | 2024-12-11 16:08 | CASEMGMT ---
Social Work- SW received notice that [facility] is not in network with MMO/pt insurance. SW updated pt; pt asked SW to call pt son. Pt son reports that he will come back into the hospital this evening to discuss with pt whether he would like to apply for [facility] LTC for [facility] or if pt would prefer to skill at a facility within MMO network then transfer if pt is not able to rehab home. Pt son will update SW following discussion with pt. MADDY remains available to follow. [facility]
--- NOTE | 2024-12-11 18:38 | PCM.PN.HOSP ---
Reason for Visit Reason for Visit: Diagnoses Unspecified fracture of shaft of humerus, right arm, initial encounter for closed fracture (12/10/24) Unspecified fall, initial encounter (12/10/24) Subjective Subjective Patient was seen and examined today, we are awaiting approval for the patient to go to a rehab facility for inpatient rehab services. Objective Data Objective Data Vital Signs: Vital Signs Temp Pulse Resp BP Pulse Ox O2 Del Method 98.3 F 58 L 18 112/56 L 98 Room Air 12/11/24 15:50 12/11/24 15:50 12/11/24 15:50 12/11/24 15:50 12/11/24 15:50 12/11/24 16:01 Oxygen Delivery Method Room Air Weight: 71.4 kg Body Mass Index (BMI) 22.6 Intake & Output: Intake and Output for Last 24 Hours 12/09/24 12/10/24 12/11/24 23:59 23:59 23:59 Intake Total 2100 / 2100 Output Total 200 / 200 Balance 1900 / 1900 Lab / Micro Data 12/11/24 08:39 12/11/24 08:39 Labs: Laboratory Results - last 24 hr 12/11/24 08:39: WBC 9.3, RBC 2.99 L, Hgb 9.4 L, Hct 31.8 L, MCV 106.4 H D, MCH 31.4, MCHC 29.6 L D, RDW Std Deviation 55.2 H, RDW Coeff of Dina 14.1, Plt Count 157, MPV 10.8, Immature Gran % (Auto) 0.300, Neut % (Auto) 65.6, Lymph % (Auto) 19.6, Bourbon % (Auto) 13.7 H, Eos % (Auto) 0.5, Baso % (Auto) 0.3, Absolute Neuts (auto) 6.1, Absolute Lymphs (auto) 1.82, Nucleated RBC % 0, Sodium 140, Potassium 5.0, Chloride 113 H, Carbon Dioxide 17.0 L, Anion Gap 10, BUN 37 H, Creatinine 2.28 H, Estim Creat Clear Calc 24.79, Est GFR (MDRD) Af Amer 35 L, Est GFR (MDRD) Non-Af 29 L, BUN/Creatinine Ratio 16.2, Glucose 105, Calcium 7.6 L, TSH 0.289 L Rhythm Strip Rhythm Strip: Sinus Rhythm Rate: 75 Ectopy: None Physical Exam Const alert, oriented x3 and no apparent distress Constitutional Narrative: Patient appears his stated age General Appearance: cooperative, well kempt and well developed Orientation / Consciousness: awake, oriented to person, oriented to place and oriented to time HEENT normocephalic, head/scalp atraumatic and moist oral mucous membranes Eyes PERRL, EOMs intact bilaterally and conjunctivae normal Neck supple, no JVD, thyroid normal and no carotid bruits General: trachea midline Resp normal respiratory effort and clear to auscultation bilaterally Auscultation: Negative for rales, rhonchi or wheezes Cardio regular rate, regular rhythm, S1 normal heart sound, S2 normal heart sound, no murmurs, no rub and no gallops GI normal to inspection, nondistended, normoactive bowel sounds, soft to palpation, non-tender and non-distended Extremity Extremity Narrative: Patient's right arm is in a sling at the time of my examination Skin no rashes or lesions noted General Skin Exam: no breakdown Neuro oriented x3, CN's II-XII intact bilaterally, no focal motor deficits and no sensory deficits noted Sensorium / Orientation: awake and alert Speech: speech normal Psych affect normal Assessment & Plan Assessment/Plan (1) Right humeral fracture: PLAN: Plan 1. Right proximal humeral head fracture secondary to osteoporosis-patient remains in a sling at this time for comfort, surgery is not indicated for this injury, PT and OT will continue to work with the patient, he will go to a nursing home facility for inpatient rehab services after discharge from the hospital here. We are currently awaiting approval for [facility]. #2 essential hypertension-patient is on metoprolol and enalapril #3 chronic obstructive pulmonary disease-patient will be given DuoNeb aerosols as needed #4 hypothyroidism-patient is on Synthroid Total clinical time spent by myself addressing the patient's medical issues, reviewing all of his data, and collaborating with patient's care team: 35 minutes Charges/Coding Visit Charges Inpatient E&M: 21556 Subs Hosp L2
[2024-12-11] MEDS: Atorvastatin Calcium 20 MG Tablet PO (21:53)
[2024-12-11 21:57] VITALS: BP 134/69; PULSE 69
[2024-12-11] MEDS: Metoprolol Tartrate 50 MG Tablet PO (21:57)
[2024-12-11] MEDS: Lisinopril 20 MG Tablet PO (21:57)
[2024-12-11 22:00] VITALS: BP 134/69; PULSE 68; RESP 16; TEMP 36.8; O2SAT 98
[2024-12-12 04:00] VITALS: BP 134/91; PULSE 57; RESP 16; TEMP 36.6; O2SAT 97
[2024-12-12] MEDS: Acetaminophen 500 MG Tablet 1000 MG PO ×2 (05:02→14:52)
[2024-12-12] MEDS: Heparin Injection (Vial) 5,000 UNIT/ML VIAL 5000 UNIT SC ×2 (05:02→14:55)
[2024-12-12] MEDS: Levothyroxine 125 MCG Tablet PO (05:02)
[2024-12-12 06:00] VITALS: BMI 23.5
[2024-12-12 08:00] VITALS: BP 136/65; PULSE 57; RESP 18; TEMP 36.3; O2SAT 97
--- NOTE | 2024-12-12 08:58 | CASEMGMT ---
Addendum entered by Macarena Dawson 12/12/24 12:55: [facility] reports that [facility] will accept pt when [facility] documentation has been submitted. Pt son verified documentation has been provided to [facility]. DCA updated. Physician updated. SW remains available to follow. Plan: RED [facility]ry Original Note: Social Work- SW met with pt and pt son to follow-up on conversation yesterday. Pt preference is [facility], not in network. Pt is understanding he would need to look at [facility] or private pay, which is not an option. SW referred pt to [facility] to begin [facility] process. DCA updated. SW remains available to follow. Plan: [facility]; pend RED Tomas
--- NOTE | 2024-12-12 09:32 | CASEMGMT ---
[facility] is willing [facility] pt [facility] pending. Will need pending number. Phylicia Izaguirre DC Planning
[2024-12-12 10:38] VITALS: BP 137/59; PULSE 59; RESP 16; TEMP 36.6; O2SAT 97
[2024-12-12] MEDS: Menthol/Lanolin/Calamine/Znox 113 GM Tube 1 APPLIC TOPICAL (11:07)
[2024-12-12] MEDS: Senna/Docusate Sodium 1 Tablet 2 TABLET PO (11:08)
[2024-12-12] MEDS: amLODIPine 5 MG Tablet PO (11:08)
--- NOTE | 2024-12-12 12:15 | PCM.TXEXTCAR ---
Diet Diet Order/Speech Therapy: 12/10/24 14:40 Diet: Cardiac - Heart Healthy Food consistency:: Regular Liquid Consistency:: Regular/Thin Routine Orders/Code Status Code Status: DNRCC-A (No intubation) DC O2, CPAP, BIPAP needs Home O2 Discharge instructions: No Wound(s) Left elbow: Wound Type: Skin Tear BLE: Wound Type: scratches Right Wrist: Wound Type: Skin Tear BERNARD knees: Wound Type: Abrasion Therapies Weight Bearing: Full weight bearing Physical Therapy: Eval and Treat Occupational Therapy: Eval and Treat Problem/Diagnosis (1) Right humeral fracture: Status: Acute Code(s): S42.301A - Unspecified fracture of shaft of humerus, right arm, initial encounter for closed fracture Plan 1. Right proximal humeral head fracture secondary to osteoporosis-patient remains in a sling at this time for comfort, surgery is not indicated for this injury, PT and OT will continue to work with the patient, he will go to a detention facility for inpatient rehab services after discharge from the hospital here. We are currently awaiting approval for [facility]. #2 essential hypertension-patient is on metoprolol and enalapril #3 chronic obstructive pulmonary disease-patient will be given DuoNeb aerosols as needed #4 hypothyroidism-patient is on Synthroid Total clinical time spent by myself addressing the patient's medical issues, reviewing all of his data, and collaborating with patient's care team: 35 minutes Allergies/Procedures Done in Hospital Allergies No Known Allergies Allergy (Verified 12/10/24 10:50) Procedures: None Type of Care/Length of Stay Estimated LOS: Convalescent Care Less Than 30 days Type of Care Needed: Skilled Rehab Potential: Good Prognosis: Good Additional Orders/Day of Discharge H&P will serve as current which was dated: 12/10/24 Day of Discharge: 12/12/24 Discharge Plan Admission Admit Date/Time: 12/10/24 12:33 Primary Reason for Your Visit: Right humerus fracture Attending Provider: Suman Cantor Primary Care Provider: Deysi Elder Consulting Providers: Campos Galvan Instructions Additional Instructions / Restrictions: Maintain sling, remove right arm from sling 3 times a day to raise arm as tolerated to maintain motion in arm Discharge Orders/Prescriptions Prescriptions: New atorvastatin 20 mg Tablet 20 mg PO QHS Qty: 0 0RF lisinopril 20 mg Tablet 20 mg PO QHS Qty: 0 0RF amlodipine 5 mg Tablet 5 mg PO DAILY Qty: 0 0RF acetaminophen 500 mg Tablet 1,000 mg PO Q8 Qty: 0 0RF levothyroxine 125 mcg Tablet 125 mcg PO DAILY@0600 Qty: 0 0RF metoprolol tartrate 50 mg Tablet 50 mg PO QHS Qty: 0 0RF oxycodone 5 mg Tablet 2.5 - 5 mg PO Q4H PRN PRN (Reason: Pain Score 4-10) 5 Days Qty: 15 0RF menthol-zinc oxide [Calmoseptine] 0.44-20.6 % Ointment 1 applic topical BID Qty: 0 0RF Protocol: *Topical Application Instructions APPLICATION INSTRUCTIONS: apply to buttocks sennosides-docusate sodium [Stimulant Laxative Plus] 8.6-50 mg Tablet 2 tab PO BID Qty: 0 0RF calcium carbonate-vitamin D3 [Calcium 600 + D(3)] 600 mg-10 mcg (400 unit) tablet 1 tab PO BID Qty: 1 0RF Discontinued enalapril maleate 20 MG tablet 20 mg PO QHS lovastatin 40 MG tablet 40 mg PO QHS aspirin 81 MG tablet 81 mg PO DAILY@0800 metoprolol tartrate 50 MG tablet 50 mg PO QHS amlodipine 5 MG tablet 5 mg PO QHS Patient Comments: acetaminophen 500 mg Tablet 1,000 mg PO DAILY PRN (Reason: pain) levothyroxine 125 mcg tablet 125 mcg PO DAILY Referrals / Follow Up: Antoine Hernandez DO [Med Staff - Active Staff] - See Referral Note (Call for follow-up appointment in 2 weeks) Deysi Elder NP-C [Primary Care Provider] - Disposition Disposition (needs filled in before D/C Order can be placed): Care Home Facility
--- NOTE | 2024-12-12 12:42 | DS.PCM_ITS ---
Providers Date of Admission: 12/10/24 Date of Discharge: 12/12/24 Primary Care Physician: Deysi Elder, JAQUAN Reason For Visit: FALL, RIGHT HUMERUS FRACTURE Diagnosis Discharge Diagnosis (1) Right humeral fracture: Status: Acute Code(s): S42.301A - Unspecified fracture of shaft of humerus, right arm, initial encounter for closed fracture Plan 1. Right proximal humeral head fracture secondary to osteoporosis-patient remains in a sling at this time for comfort, surgery is not indicated for this injury, PT and OT will continue to work with the patient, he will go to a group home facility for inpatient rehab services after discharge from the hospital here. We are currently awaiting approval for [facility]. #2 essential hypertension-patient is on metoprolol and enalapril #3 chronic obstructive pulmonary disease-patient will be given DuoNeb aerosols as needed #4 hypothyroidism-patient is on Synthroid Total clinical time spent by myself addressing the patient's medical issues, reviewing all of his data, and collaborating with patient's care team: 35 minutes Medications at Discharge Home Medications acetaminophen 500 mg tablet 1,000 mg (2 x 500 mg) PO Q8 #0 tabs 12/12/24 amlodipine 5 mg tablet 5 mg PO DAILY #0 tabs 12/12/24 atorvastatin 20 mg tablet 20 mg PO QHS #0 tabs 12/12/24 calcium 600 mg (as carbonate)-vitamin D3 10 mcg (400 unit) tablet (Calcium 600 + D(3)) 1 tab PO BID #1 TAB 12/12/24 levothyroxine 125 mcg tablet 125 mcg PO DAILY@0600 #0 tabs 12/12/24 lisinopril 20 mg tablet 20 mg PO QHS #0 tabs 12/12/24 menthol 0.44 %-zinc oxide 20.6 % topical ointment (Calmoseptine) 1 applic topical BID #0 grams 12/12/24 metoprolol tartrate 50 mg tablet 50 mg PO QHS #0 tabs 12/12/24 sennosides 8.6 mg-docusate sodium 50 mg tablet (Stimulant Laxative Plus) 2 tab PO BID #0 tabs 12/12/24 atropine 1 % eye drops 1 drp sublingual TID 12/14/24 doxycycline monohydrate 100 mg capsule 100 mg PO BID #20 CAPSULES 12/14/24 oxycodone 5 mg tablet 2.5 - 5 mg PO Q4H PRN Pain Score 4-10 12/14/24 oxygen #1 ea 12/14/24 Hospital Course Operations None Procedures None Summary of Care Provided Minutes Spent on Discharge: 32 Hospital Course: This 84-year-old white male was seen in the emergency room at [facility] after sustaining a fall at home when he bent over to pick something up off the floor, patient lost his balance and fell backwards hitting his right shoulder. X-ray of the right shoulder revealed a right humeral neck fracture with no significant displacement. Patient was admitted to [place] [id number] and seen by PT and OT, it was felt he would benefit by going to a group home facility for skilled rehab services. On 12/12/2024, patient was seen and examined: On examination he appeared in good health and spirits. Vital signs as documented. Skin warm and dry and without overt rashes. Neck without JVD, neck was supple, trachea midline, thyroid was normal. Lungs clear bilaterally, normal air movement was noted. Heart exam notable for regular rhythm, normal sounds and absence of murmurs, rubs or gallops. Abdomen unremarkable and without evidence of organomegaly, masses, or abdominal aortic enlargement. Bowel sounds are present, abdomen is not distended. Extremities nonedematous, no cyanosis was noted, no clubbing was noted. Neuro: Cranial nerves II through XII are grossly intact, no focal motor deficits were noted, sensation to light touch and pinprick intact, motor exam 5/5 throughout. Psych: Patient is alert and oriented x3, he does not appear anxious or depressed, he does not appear agitated. Patient was felt to be stable for transfer to group home facility on 12/12/2024. Weight / BMI Weight Weight: 74.3 kg Body Mass Index (BMI) 23.5 ABG / Lab / Microbiology Data 12/11/24 08:39 12/11/24 08:39 D/C Instructions DC O2, CPAP, BIPAP Needs Home O2 Discharge instructions: No Meaningful Use Info Meaningful Use Meaningful Use Diagnoses (Choose all that apply): None applicable Ischemic Stroke Statin Dosing Therapy Reference: STATIN DOSE THERAPY REFERENCE: * Patients > 75 years receive moderate or high dose statin therapy. * Patients 75 years or YOUNGER should receive HIGH intensity statin dose unless contraindicated. You will be required to document reason for non-treatment if statin daily dose does not meet guidelines. HIGH DOSE STATIN THERAPY DAILY Atorvastatin > than or = to 40 mg Rosuvastatin > than or = to 20 mg Amlodipine + Atorvastatin > than or = to 2.5/40 mg Ezetimibe + Simvastatin 10/80 mg Simvastatin 80mg Discharge Plan Admission Admit Date/Time: 12/10/24 12:33 Primary Reason for Your Visit: Right humerus fracture Attending Provider: Suman Cantor Primary Care Provider: Deysi Elder Consulting Providers: Campos Galvan Instructions Additional Instructions / Restrictions: Maintain sling, remove right arm from sling 3 times a day to raise arm as tolerated to maintain motion in arm Discharge Orders/Prescriptions Prescriptions: New atorvastatin 20 mg Tablet 20 mg PO QHS Qty: 0 0RF lisinopril 20 mg Tablet 20 mg PO QHS Qty: 0 0RF amlodipine 5 mg Tablet 5 mg PO DAILY Qty: 0 0RF acetaminophen 500 mg Tablet 1,000 mg PO Q8 Qty: 0 0RF levothyroxine 125 mcg Tablet 125 mcg PO DAILY@0600 Qty: 0 0RF metoprolol tartrate 50 mg Tablet 50 mg PO QHS Qty: 0 0RF menthol-zinc oxide [Calmoseptine] 0.44-20.6 % Ointment 1 applic topical BID Qty: 0 0RF Protocol: *Topical Application Instructions APPLICATION INSTRUCTIONS: apply to buttocks sennosides-docusate sodium [Stimulant Laxative Plus] 8.6-50 mg Tablet 2 tab PO BID Qty: 0 0RF calcium carbonate-vitamin D3 [Calcium 600 + D(3)] 600 mg-10 mcg (400 unit) tablet 1 tab PO BID Qty: 1 0RF Discontinued enalapril maleate 20 MG tablet 20 mg PO QHS lovastatin 40 MG tablet 40 mg PO QHS aspirin 81 MG tablet 81 mg PO DAILY@0800 metoprolol tartrate 50 MG tablet 50 mg PO QHS amlodipine 5 MG tablet 5 mg PO QHS Patient Comments: acetaminophen 500 mg Tablet 1,000 mg PO DAILY PRN (Reason: pain) levothyroxine 125 mcg tablet 125 mcg PO DAILY No Action atropine 1 % drops 1 drp sublingual TID oxycodone 5 mg Tablet 2.5 - 5 mg PO Q4H PRN (Reason: Pain Score 4-10) doxycycline monohydrate 100 mg capsule 100 mg PO BID Qty: 20 0RF (DME) oxygen See Rx Instructions .Route .MEDSUPPLY Qty: 1 0RF Rx Instructions: As directed Referrals / Follow Up: Antoine Hernandez DO [Med Staff - Active Staff] - See Referral Note (Call for follow-up appointment in 2 weeks) Deysi Elder TRIAL MANAGEMENT ASSOCIATE-C [Primary Care Provider] - Disposition Disposition (needs filled in before D/C Order can be placed): Intermediate Facility Charges/Coding Visit Charges Inpatient E&M: 98323 Disch Hosp >30min
[2024-12-12 13:25] VITALS: O2SAT 91
--- NOTE | 2024-12-12 13:27 | CASEMGMT ---
Social Work Physician feels that pt is ready for discharge today.? 1989 form completed in [facility]. DCA notified of discharge. Final discharge arrangements and notification to patient/family as per discharge transit planning director.? Disposition: [facility]; intermediate level of care RED Rose
--- NOTE | 2024-12-12 14:29 | CASEMGMT ---
Discharge Planning Discharge orders, signed med list, and transport time sent to [facility]. Physicians will transport pt by wheelchair at 4:30p. Nursing, SW, pt, and his son/HC POA (Hardik) updated. Phylicia Izaguirre DC Planning Asst.
[2024-12-12] MEDS: oxyCODONE 5 MG Tablet PO (14:54)
--- NOTE | 2024-12-12 15:26 | NURSING ---
Student with clinical instructor assessed the patient who stated complaints of back pain. Upon assessment student nurse noted patient was on a bed arizmendi and had a bruise right gluteal cheek. Patient stated they were on the bed arizmendi for a while. Student notified RN Arelis at the time of assessment.
[2024-12-12 15:56] VITALS: BP 159/80; PULSE 63; RESP 18; TEMP 36.4; O2SAT 95
== END 2024-12-12 17:39 | disposition skilled nursing facility (03) | DRG 544 ==
LOC: ED 12:40 → MS3 13:48
PROVIDERS: Admitting Provider Internal Medicine; Emergency Provider Emergency Medicine; PCP Nurse Practitioner Family; Visit Provider Internal Medicine
DX: M80.021A Age-related osteoporosis with current pathological fracture, right humerus, initial encounter for fracture (principal); E03.9 Hypothyroidism, unspecified; Z66 Do not resuscitate; J43.9 Emphysema, unspecified; I10 Essential (primary) hypertension; E78.00 Pure hypercholesterolemia, unspecified; W18.39XA Other fall on same level, initial encounter; Z79.82 Long term (current) use of aspirin; Z79.890 Hormone replacement therapy; Z79.899 Other long term (current) drug therapy; Z87.891 Personal history of nicotine dependence
CPT/HCPCS: 36415; 71045; 73030; 80048; 84443; 85025; 94668; 97162; 97166; 97530; 97535; 99285; A4216; J2405

== ENCOUNTER 2024-12-14 08:28 | Emergency (ER) | payer MEDICARE, SELFPAY ==
[2024-12-14] VITALS (8 sets, daily range): BP systolic 120–143; BP diastolic 60–90; PULSE 69–81; RESP 14–20; TEMP 36.4–36.7; O2SAT 90–97; BMI 22.5
--- NOTE | 2024-12-14 08:35 | ED.VIS.DYS ---
HPI History of Present Illness Chief Complaint: Cough Informant: patient Onset/Context/Timing Onset: Yesterday Context: gradual Timing: Waxes and wanes Worsened by: Nothing Relieved by: Nothing Associated Symptoms cough and yellow sputum; Negative for rhinorrhea, ear pain, fever, sore throat, chills, clear sputum, white sputum or green sputum Chest Pain: Positive for None Narrative Narrative: Patient presents with congestion and cough that began yesterday. Patient states it came on gradually. Patient states he has been waxing and waning. Patient states he is coughing up a yellow/coello sputum. Patient denies any fevers or chills. Patient denies any chest pain. Patient states he does not feel like he is short of breath. Patient states nothing makes his cough better and nothing makes it worse. Patient was recently admitted to the hospital for proximal humerus fracture. PE Risk Factors: Positive for Recent immobilization; Negative for Cancer, OCP + Smoking + > 35, Prior DVT or PE, Recent surgery or Recent travel [facility] Medical History Wears hearing aid Wears glasses Wears dentures High cholesterol Back pain Syncope Constipation Former smoker Neuropathy History of edema History of stress test Hx of pancreatitis SOB (shortness of breath) Emphysema, unspecified Back problem Arthritis History of colon polyps Dysphagia Acute bronchitis Thyroid disease Fatigue Hypertension Home Medications ?Medication ?Instructions ?Recorded ?Last Taken ?Type acetaminophen 500 mg tablet 1,000 mg (2 x 500 mg) PO Q8 #0 tabs 12/12/24 12/12/24 Rx amlodipine 5 mg tablet 5 mg PO DAILY #0 tabs 12/12/24 12/13/24 Rx atorvastatin 20 mg tablet 20 mg PO QHS #0 tabs 12/12/24 12/13/24 Rx calcium 600 mg (as 1 tab PO BID #1 TAB 12/12/24 12/13/24 Rx carbonate)-vitamin D3 10 mcg (400 unit) tablet (Calcium 600 + D(3)) levothyroxine 125 mcg tablet 125 mcg PO DAILY@0600 #0 tabs 12/12/24 12/14/24 Rx lisinopril 20 mg tablet 20 mg PO QHS #0 tabs 12/12/24 12/13/24 Rx menthol 0.44 %-zinc oxide 20.6 % 1 applic topical BID #0 grams 12/12/24 12/13/24 Rx topical ointment (Calmoseptine) metoprolol tartrate 50 mg tablet 50 mg PO QHS #0 tabs 12/12/24 12/13/24 Rx sennosides 8.6 mg-docusate sodium 2 tab PO BID #0 tabs 12/12/24 12/13/24 Rx 50 mg tablet (Stimulant Laxative Plus) atropine 1 % eye drops 1 drp sublingual TID 12/14/24 12/13/24 History oxycodone 5 mg tablet 2.5 - 5 mg PO Q4H PRN Pain Score 12/14/24 12/14/24 History 4-10 Allergy/AdvReac Type Severity Reaction Status Date / Time No Known Allergies Allergy Verified 12/14/24 08:29 Family History Brother Cancer Brother Cancer Sister Heart disease Hypertension Myocardial infarction Father Heart disease Myocardial infarction Surgical History History of esophagogastroduodenoscopy (EGD) Hx of colonoscopy Hx of right cataract extraction History of tonsillectomy and adenoidectomy History of back surgery History of cholecystectomy Social History Smoking Status: Former smoker alcohol intake: never substance use type: does not use caffeine: Yes what type of physical activity do you participate in: none frequency: does not exercise ROS ROS ED Constitutional Constitutional ED: Denies chills or fever(s) Eyes Eyes: Denies blurry vision or change in vision ENT ENT ED: Denies rhinorrhea or sore throat Cardiovascular Cardiovascular: Denies chest pain or palpitations Respiratory/Chest Respiratory/Chest: Reports cough; Denies dyspnea Gastrointestinal Gastrointestinal: Denies nausea or vomiting Genitourinary Genitourinary ED: Denies dysuria or hematuria Musculoskeletal Musculoskeletal: Denies back pain or neck pain Integumentary Denies abscess or rash Neurologic Neurologic: Denies headache(s) or weakness Allergic/Immunologic Allergic/Immunologic ED: Denies mouth swelling or urticaria EXAM Physical Exam Const Vital Signs: 12/14/24 08:29 12/14/24 08:31 12/14/24 09:31 Temperature 97.7 F L 97.8 F Temperature Source Oral Oral Pulse Rate 69 75 Respiratory Rate 14 16 Respiratory Effort Normal Respiratory Depth Normal Respiratory Pattern Normal Blood Pressure 143/60 H 120/90 H Blood Pressure Mean 87 100 Pulse Ox 95 92 Oxygen Delivery Method Nasal Cannula Nasal Cannula Nasal Cannula Oxygen Flow Rate (L/min) 2 4 4 12/14/24 09:50 12/14/24 09:50 12/14/24 11:00 Temperature 97.6 F L Temperature Source Temporal Pulse Rate 73 70 Respiratory Rate 14 19 H Respiratory Effort Respiratory Depth Respiratory Pattern Normal Blood Pressure 130/63 H Blood Pressure Mean 85 Pulse Ox 90 97 Oxygen Delivery Method Nasal Cannula Room Air Oxygen Flow Rate (L/min) 4 12/14/24 12:00 12/14/24 13:00 12/14/24 14:00 Temperature 97.8 F 98.0 F 98.1 F Temperature Source Oral Temporal Temporal Pulse Rate 81 77 72 Respiratory Rate 18 16 20 H Respiratory Effort Respiratory Depth Respiratory Pattern Blood Pressure 120/73 142/73 H 132/76 H Blood Pressure Mean 88 96 94 Pulse Ox 94 97 97 Oxygen Delivery Method Nasal Cannula Nasal Cannula Nasal Cannula Oxygen Flow Rate (L/min) 4 4 4 Positive well nourished and well developed General Appearance ED: well developed and NAD HEENT Reports moist mucous membranes Neck supple and no JVD Resp normal respiratory effort Auscultation: diminished lung sounds diffuse Cardio regular rate and regular rhythm GI non-tender and non-distended Extremity Extremity Narrative: There is ecchymosis and edema over the right humerus. Range of motion is limited in all motions of the right shoulder secondary to pain. There is a skin tear over the distal forearm. Dressing is in place. Neuro oriented x3, CN's II-XII intact bilaterally and no sensory deficits noted [place] Coma Scale: document GCS findings Spontaneous Obeys Commands Oriented 15 Sensorium / Orientation: alert Speech: speech normal Motor Exam: strength 5/5 throughout Psych mental status grossly normal MDM MDM MDM Narrative Medical decision making narrative: Differential diagnosis includes pneumonia, bronchitis, cardiac dysrhythmia, cardiac ischemia, electrolyte abnormality, and dehydration. EKG will be obtained to assess for cardiac dysrhythmia and cardiac ischemia. Chest x-ray will be obtained to assess for pneumonia and bronchitis. CBC will be obtained to assess for leukocytosis and anemia. Basic metabolic profile will be obtained to assess for electrolyte abnormality and renal function. History & Record Review Additional record(s) reviewed:: Prior inpatient record, Prior ED visit and Prior labs Lab Data Attestation: I reviewed the patient's lab results. Lab results narrative: CBC was reviewed.. There is a mild anemia with a hemoglobin of 9.3 and hematocrit 29.1. Basic metabolic profile was reviewed. BUN was 53 and creatinine was 2.2. These are consistent with previous results. Initial high-sensitivity troponin was reviewed and was less than 6. 2-hour repeat high-sensitivity troponin was reviewed and was 52. Labs: Laboratory Results - last 24 hr 12/14/24 12/14/24 12/14/24 09:20 10:05 12:15 WBC 8.7 RBC 2.95 L Hgb 9.3 L Hct 29.1 L MCV 98.6 H D MCH 31.5 MCHC 32.0 D RDW Std Deviation 50.4 H RDW Coeff of Dina 14.1 Plt Count 197 MPV 10.7 Immature Gran % (Auto) 0.300 Neut % (Auto) 77.3 H Lymph % (Auto) 10.6 L [place] % (Auto) 11.6 H Eos % (Auto) 0.0 Baso % (Auto) 0.2 Absolute Neuts (auto) 6.7 Absolute Lymphs (auto) 0.92 Nucleated RBC % 0 Sodium 140 Potassium 4.7 Chloride Direct 108 Carbon Dioxide 17.3 L Anion Gap 15 BUN 52 H Creatinine 2.2 H Estim Creat Clear Calc 25.62 Est GFR (MDRD) Non-Af 30 L BUN/Creatinine Ratio 24.0 H Glucose 87 Calcium 8.3 Troponin T High Sens < 6 Troponin T Hi Sens 2 Hr 52 H Troponin T Hi Sens 2Hr Delta UNABLE TO CALCULATE Radiography Chest X-Ray - ED: 2 View, Read by ED Physician, Read by Radiologist, Left Infiltrate and Left Effusion Diagnostic Testing: Clinical Impression(s) from Imaging Studies Chest X-Ray 12/14/24 10:27 IMPRESSION: New left lower lobe infiltration and small left pleural effusion. Reading Location: [facility] PA and lateral chest x-ray was obtained. There are 2 views. On my independent interpretation, lung hoang are clear. There is normal cardiac silhouette. Bony thorax is normal. There is no acute process noted. Radiologist also interpreted the x-ray and agrees. EKG Initial EKG: Attestation: I personally reviewed and interpreted this EKG as follows: Interpretation: Sinus Rhythm (76) and Non-Specific ST Changes Comments: EKG was obtained. On my independent interpretation, it showed a normal sinus rhythm with occasional PVC with a rate of 76. RI interval, QRS interval, and QTc intervals were all normal. There is left axis deviation at -33. There are nonspecific ST-T wave changes. Prior EKG tracings: available for review Prior: Unchanged (06/14/2021) Treatment and Re-Evaluation :: Patient was given a DuoNeb aerosol. Patient was advised of his findings. Blood culture was obtained. Patient started on Rocephin and Zithromax here. Case was discussed with hospitalist. He felt the patient could be discharged to the extended care facility on oral antibiotics. Case was discussed with Dr. Boyle from cardiology regarding elevated troponin. He feels that the change in troponin is most likely due to strain from the pneumonia. He does not feel that any further intervention is necessary. Patient will be discharged back to extended-care facility as long as nasal cannula oxygen is able to be provided to the patient. Patient was given a prescription for doxycycline. Patient was instructed to follow-up with his primary care physician in 5 to 7 days. Patient understood and was agreeable with the plan. All questions were answered. Discharge Plan Triage Chief Complaint: Cough ED Provider: Dave Epps Dx/Rx/DC Orders Clinical Impression: Pneumonia, SOB (shortness of breath) Prescriptions: No Action atorvastatin 20 mg Tablet 20 mg PO QHS Qty: 0 0RF lisinopril 20 mg Tablet 20 mg PO QHS Qty: 0 0RF amlodipine 5 mg Tablet 5 mg PO DAILY Qty: 0 0RF acetaminophen 500 mg Tablet 1,000 mg PO Q8 Qty: 0 0RF levothyroxine 125 mcg Tablet 125 mcg PO DAILY@0600 Qty: 0 0RF metoprolol tartrate 50 mg Tablet 50 mg PO QHS Qty: 0 0RF menthol-zinc oxide [Calmoseptine] 0.44-20.6 % Ointment 1 applic topical BID Qty: 0 0RF Protocol: *Topical Application Instructions APPLICATION INSTRUCTIONS: apply to buttocks sennosides-docusate sodium [Stimulant Laxative Plus] 8.6-50 mg Tablet 2 tab PO BID Qty: 0 0RF calcium carbonate-vitamin D3 [Calcium 600 + D(3)] 600 mg-10 mcg (400 unit) tablet 1 tab PO BID Qty: 1 0RF atropine 1 % drops 1 drp sublingual TID oxycodone 5 mg Tablet 2.5 - 5 mg PO Q4H PRN (Reason: Pain Score 4-10) Primary Care Provider: Deysi Elder Referrals: Deysi Elder, [facility] [Primary Care Provider] - 3-5 Days Print Language: Mongolian Disposition Disposition: Jail Facility Discharge Location: [facility]
--- NOTE | 2024-12-14 08:53 | EKG12_ITS ---
Test Reason : Blood Pressure : */* mmHG Vent. Rate : 76 BPM Atrial Rate : 76 BPM P-R Int : 190 ms QRS Dur : 98 ms QT Int : 388 ms P-R-T Axes : 73 -33 37 degrees QTcB Int : 436 ms Sinus rhythm with occasional Premature ventricular complexes Left axis deviation Nonspecific ST abnormality Abnormal ECG When compared with ECG of 14-Jun-2021 08:22, No significant change was found Confirmed by Dann Boyle ([id number]), editorial clerk MELINDA TUCKER ([id number]) on 12/18/2024 2:05:48 PM Referred By: Confirmed By: Dann Boyle
[2024-12-14] MEDS: Ipratropium/Albuterol Sulfate 3 ML AMPUL.NEB INHALATION (09:49)
[2024-12-14 10:16] LABS: Absolute Lymphocyte Count 0.92 X10^3/uL (0.83-4.51); Absolute Neutrophil Count 6.7 X10^3/uL (2.0-7.7); Basophil# 0.02 X10^3/uL; Basophil% 0.2 % (0-1); Hematocrit 29.1 % (40-54); Hemoglobin 9.3 g/dL (13.0-16.5); Lymphocyte # 0.92 X10^3/ul (0.83-4.51); Lymphocyte % 10.6 % (19-41); Mean Corpuscular Hgb 31.5 pg (27.0-32.0); Mean Corpuscular Volume 98.6 fL (80-94); Mean Platelet Vol. 10.7 fl (6.2-12.0); Monocyte# 1.01 X10^3/uL; Monocyte% 11.6 % (0-10); NRBC Flagged by Analyzer 0 % (0-5); Neutrophil # 6.71 X10^3/uL (2.7-7.7); Neutrophil % 77.3 % (47-70); Platelet Count 197 K/mm3 (150-450); RBC Distribution Width CV 14.1 % (11.6-14.6); RBC Distribution Width SD 50.4 fl (35.1-43.9); Red Blood Count 2.95 M/mm3 (4.6-6.2); White Blood Count 8.7 K/mm3 (4.4-11.0)
--- NOTE | 2024-12-14 10:27 | RAD_ITS ---
PROCEDURE: CHEST PA AND LATERAL REASON FOR EXAM: Cough. TECHNIQUE: AP and lateral views were obtained. COMPARISON: Comparison is made with prior study dated December 10, 2024. FINDINGS: EKG electrodes are seen. Mild cardiomegaly atherosclerotic calcification of the aortic arch. The mediastinal contour is unremarkable. There is evidence of infiltration in the left lower lobe with a small left pleural effusion. Degenerative changes are identified within the thoracic spine. RAD/Chest PA and Lateral IMPRESSION: New left lower lobe infiltration and small left pleural effusion. Reading Location: [id number]
[2024-12-14 11:01] LABS: Troponin T High Sensitivity < 6 ng/L (<=22)
[2024-12-14 12:16] LABS: Anion Gap 15 (5-15); BUN 52 mg/dL (4-19); Calcium 8.3 mg/dL (7.6-11.0); Carbon Dioxide 17.3 mmol/L (22.0-29.0); Chloride 108 mmol/L (96-108); Creatinine, Serum 2.2 mg/dL (0.8-1.3); EST Glomerular Filtration Rate 30 (>60); Estimated Creatinine Clearance 25.62 ml/min; Glucose 87 mg/dL (70-99); Potassium 4.7 mmol/L (3.3-5.1); Sodium Level 140 mmol/L (133-145)
[2024-12-14] MEDS: Ceftriaxone 2 GM in 0.9% Normal Saline (50mL MB+) 50 ML IV (12:18)
[2024-12-14 12:51] LABS: TROPONIN VARIANCE 2 HR UNABLE TO CALCULATE; Troponin T High Sens 2 HR 52 ng/L (<=22)
[2024-12-14] MEDS: Azithromycin 500 MG in 0.9% Normal Saline (250mL Bag) 250 ML 255 MG IV (13:20)
[2024-12-14 14:38] LABS: TROPONIN VARIANCE 4 HR UNABLE TO CALCULATE; Troponin T High Sens 4 HR 50 ng/L (<=22)
--- NOTE | 2024-12-14 14:53 | ED.RN ---
PHYSICIANS WILL BE HERE AROUND [id number]
== END 2024-12-14 16:24 | disposition skilled nursing facility (03) ==
PROVIDERS: Emergency Provider Emergency Medicine; PCP Nurse Practitioner Family; Visit Provider Emergency Medicine
DX: R05.9 Cough, unspecified (principal); J18.9 Pneumonia, unspecified organism; E78.00 Pure hypercholesterolemia, unspecified; Z87.891 Personal history of nicotine dependence; R06.02 Shortness of breath; I10 Essential (primary) hypertension; Z79.899 Other long term (current) drug therapy; Z98.49 Cataract extraction status, unspecified eye; Z90.49 Acquired absence of other specified parts of digestive tract
CPT/HCPCS: 71046; 80048; 84484; 85025; 87040; 87077; 93005; 94640; 96365; 96366; 96367; 99285; A4216; J0696